=== PATIENT | male | born 1970 | race Hispanic/Latino ===

== ENCOUNTER 2017-12-02 21:39 | Inpatient (IN) | payer OTHER ==
[2017-12-02] MEDS ORDERED: NACL 0.9% 1000 ML 1,000 ML IV ONE (22:49)
[2017-12-02] MEDS ORDERED: DILAUDID IV ONE (22:49)
[2017-12-02] MEDS ORDERED: ZOFRAN IV ONE (22:49)
[2017-12-02 23:00] LABS: Basophils % (Auto) 0.7 % (0.0-1.8); Eosinophils % (Auto) 0.4 % (0.0-4.3); Hematocrit 38.3 % (35.5-45.6); Lymphocytes # (Auto) 1.2 K/mm3 (1.2-5.4); Lymphocytes % (Auto) 33.3 % (13.4-35.0); Mean Corpuscular HGB Conc 34 % (32-34); Mean Corpuscular Hemoglobin 34 pg (28-32); Mean Corpuscular Volume 99 fl (84-94); Monocytes # (Auto) 0.3 K/mm3 (0.0-0.8); Monocytes % (Auto) 7.4 % (0.0-7.3); Platelet Count 117 K/mm3 (140-440); Red Blood Count 3.87 M/mm3 (3.65-5.03)
[2017-12-02 23:06] LABS: Magnesium 1.7 mg/dL (1.7-2.3)
[2017-12-02 23:11] LABS: Alanine Aminotransferase 49 units/L (7-56); Albumin 4.1 g/dL (3.9-5); BUN/Creatinine Ratio 14; Blood Urea Nitrogen 7 mg/dL (9-20); Calcium 8.2 mg/dL (8.4-10.2); Hemolysis Index 15
--- NOTE | 2017-12-02 23:14 | Emergency Department Report ---
ED Abdominal Pain HPI - General Chief Complaint: Abdominal Pain Stated Complaint: ABDOMINAL PAIN Time Seen by Provider: 12/02/17 22:35 Source: patient, EMS Mode of arrival: Stretcher Limitations: No Limitations - History of Present Illness Initial Comments: 47-year-old male with a past medical history diabetes and alcohol abuse presents to the hospital complaints of acute pancreatitis. Patient states that he quit alcohol but sided making again the last 3 days secondary to pain. Patient complains of severe epigastric pain radiating to the back that is constant without aggravating or alleviating factors. Patient had associated nausea vomiting that stopped approximately 3 days ago. Patient also told that he has gallbladder sludging and might need his gallbladder out. He was sent from [facility] after receiving lab work and CT suggestive of pancreatitis. Severity scale (0 -10): 4 - Related Data Allergies Allergy/AdvReac Type Severity Reaction Status Date / Time No Known Allergies Allergy Verified 12/03/17 00:27 ED Review of Systems ROS: Stated complaint: ABDOMINAL PAIN Other details as noted in HPI Comment: All other systems reviewed and negative Other: Constitutional: No fevers chills Eyes: No eye pain visual changes or discharge ENT: No ear pain or throat pain Neck: Denies pain Respiratory: Denies cough wheezing shortness of breath Cardiovascular: Denies chest pain, palpitations, syncope GI: As per HPI : Denies dysuria Musculoskeletal: Pain radiates to the back Skin: Denies rash, lesions, erythema Neurologic: Denies headache, numbness, weakness Psychiatric: Denies suicidal ideation, hallucinations ED Past Medical Hx - Past Medical History Hx Diabetes: Yes Additional medical history: pancreatitis - Social History Smoking Status: Current Every Day Smoker Substance Use Type: Alcohol ED Physical Exam - General Limitations: No Limitations - Other Other exam information: General: No limitations, patient is alert in no acute distress Head exam: Atraumatic, normocephalic Eyes exam: Normal appearance ENT: Moist mucous membrane, normal oropharynx Neck exam: Normal inspection, full range of motion Respiratory exam: Clear to auscultation bilateral, no wheezes, rales, crackles Cardiovascular: Normal rate and rhythm, normal heart sounds Abdomen: Soft, nondistended, and upper quadrant, epigastric tenderness. No rebound or guarding. Extremity: Full range of motion normal inspection no deformity Back: Normal Inspection, full range of motion, no tenderness Neurologic: Alert, oriented x3, cranial nerves intact, no motor or sensory deficit Psychiatric: normal affect, normal mood Skin: Warm, dry, intact ED Course Vital Signs 12/02/17 12/02/17 12/02/17 21:54 21:55 22:00 Temperature Pulse Rate 96 H 94 H 90 Respiratory 14 9 L 12 Rate Blood Pressure 149/93 Blood Pressure [Left] O2 Sat by Pulse 97 98 Oximetry 12/02/17 12/02/17 12/02/17 22:03 22:05 22:11 Temperature 98.4 F Pulse Rate 97 H 96 H 92 H Respiratory 20 12 13 Rate Blood Pressure 152/95 149/93 149/93 Blood Pressure 152/95 [Left] O2 Sat by Pulse 98 98 98 Oximetry 12/02/17 12/02/17 12/02/17 22:15 22:20 22:25 Temperature Pulse Rate 90 89 91 H Respiratory 13 13 10 L Rate Blood Pressure 149/93 137/86 137/86 Blood Pressure [Left] O2 Sat by Pulse 99 98 99 Oximetry 12/02/17 22:33 Temperature Pulse Rate Respiratory 20 Rate Blood Pressure Blood Pressure [Left] O2 Sat by Pulse 100 Oximetry - Consultations Consultation #1: 12/02/17 23:00 Case was discussed with [facility] physician Dr. Gandhi. They do not have beds so recommend admission here. Patient was sent to the ED with a copy of the CT imaging and report however, I am unable to open the CD on the computers in the ED. I received a verbal report of the CT showing pancreatitis and to alcohol intoxication labs. They faxed over results for review. ED Medical Decision Making - Lab Data Result diagrams: 12/02/17 22:36 12/02/17 22:36 - Medical Decision Making Acute pancreatitis Likely alcohol-induced Patient presented to the [facility] office with a alcohol level in the 300s Patient gives a history of gallbladder sludge no acute gallbladder findings on CT performed today at [facility]. CT consistent with acute interstitial pancreatitis and profound hepatic steatosis Patient will be admitted to the hospital for further treatment - Differential Diagnosis pancreatitis, gastritis, biliary colic, cholecystitis Critical Care Time: No Critical care attestation.: If time is entered above; I have spent that time in minutes in the direct care of this critically ill patient, excluding procedure time. ED Disposition Clinical Impression: Acute alcoholic pancreatitis, Diabetes, Thrombocytopenia Disposition: OP ADMIT IP TO THIS HOSP Is pt being admited?: Yes Condition: Stable Time of Disposition: 23:19 (Dr Massey/hosp)
--- NOTE | 2017-12-02 23:27 | History and Physical Report ---
History of Present Illness Date of examination: 12/02/17 Chief complaint: Epigastric pain History of present illness: 47 year old woman with past medical history significant for alcohol abuse, diabetes mellitus on insulin, pancreatitis was sent from [facility] for the complaints of epigastric pain that started a week ago. He went to [facility] and CT scan was done and diagnosed to have pancreatitis and sent to [facility] for admission because of they don't have bed. Patient is complaining sharp epigastric pain, 8 out of 10 in intensity, with radiation to the back, associated with nausea and vomiting, no aggravating factors, pain is getting better after he get pain medicine in the ED. Patient said he has been alcoholic and quit drinking 3 months ago when he developed pancreatitis. Patient started to drink 3 days after he has abdominal pain to ease the pain but it didn't help him much. Patient denied fever, chills. Lipase level was 175 at presentation. Imaging was done at the [facility] per report from ED doctor showed pancreatitis but didn't show any stone, or any necrotic tissue in the pancreas. REVIEW OF SYSTEMS: GENERAL: no weight change, no fatigue, no fever HEAD: no head ache EYES: no blurry vision, no acute visual loss EARS: no hearing loss, no discharge, no earache NOSE: no stuffiness, no sneezing, no discharge MOUTH, THROAT AND NECK: no bleeding gums, no sore throat, no swollen neck CARDIAC: no palpitations, no dyspnea on exertion, no orthopnea, no PND, no edema , no chest pain RESPIRATORY: no shortness of breath, no wheeze, no cough, no sputum, no hemoptysis, no asthma GI: As stated in the HPI. URINARY: no change in frequency, no urgency, no polyuria, no hematuria, no incontinence MUSCULOSKELETAL: no muscle weakness, no pain, no joint stiffness NEUROLOGIC: no loss of sensation/numbness, no tingling, no tremors, no weakness/ paralysis HEMATOLOGIC: no anemia, no easy bruising SKIN: no rashes ENDOCRINE: no heat/cold intolerance, no polyuria, no polydipsia, no thyroid problems, + diabetes PSYCHIATRIC: no anxiety, no depression, no suicidal ideations Past History Past Medical History: diabetes, other Past Surgical History: hernia repair, Other (pancreatitis cyst removal) Social history: alcohol abuse (vodka), full code. denies: prescription drug abuse, IV drug use Family history: no significant family history Medications and Allergies Allergies Allergy/AdvReac Type Severity Reaction Status Date / Time No Known Allergies Allergy Verified 12/03/17 00:27 Home Medications Medication Instructions Recorded Confirmed Last Taken Type No Known Home Medications [No 12/03/17 12/03/17 Unknown History Reported Home Medications] Active Meds: Active Medications Sodium Chloride (Nacl 0.9% 1000 Ml) 1,000 mls @ 999 mls/hr IV BOLUS ONE Stop: 12/02/17 23:49 Exam - Physical Exam Narrative exam: Not in cardiopulmonary distress. The patient appeared well nourished and normally developed. Vital signs as documented. Head exam is unremarkable. No scleral icterus . Neck is without jugular venous distension, thyromegaly, or carotid bruits. Lungs are clear to auscultation. Cardiac exam reveals regular rate and Rhythm. First and second heart sounds normal. No murmurs, rubs or gallops. Abdominal exam reveals epigastric and right upper quadrant tenderness. Extremities are nonedematous and both femoral and pedal pulses are normal. COMPOSITE MECHANIC: Alert and oriented 3. No focal weakness. - Constitutional Vitals: Temp Pulse Resp BP Pulse Ox 98.4 F 91 H 20 137/86 100 12/02/17 22:03 12/02/17 22:25 12/02/17 22:33 12/02/17 22:25 12/02/17 22:33 Results - Labs CBC & Chem 7: 12/02/17 22:36 12/02/17 22:36 Labs: Laboratory Last Values WBC 3.6 K/mm3 (4.5-11.0) L 12/02/17 22:36 RBC 3.87 M/mm3 (3.65-5.03) 12/02/17 22:36 Hgb 13.0 gm/dl (11.8-15.2) 12/02/17 22:36 Hct 38.3 % (35.5-45.6) 12/02/17 22:36 MCV 99 fl (84-94) H 12/02/17 22:36 MCH 34 pg (28-32) H 12/02/17 22:36 MCHC 34 % (32-34) 12/02/17 22:36 RDW 16.0 % (13.2-15.2) H 12/02/17 22:36 Plt Count 117 K/mm3 (140-440) L 12/02/17 22:36 Lymph % (Auto) 33.3 % (13.4-35.0) 12/02/17 22:36 [place] % (Auto) 7.4 % (0.0-7.3) H 12/02/17 22:36 Eos % (Auto) 0.4 % (0.0-4.3) 12/02/17 22:36 Baso % (Auto) 0.7 % (0.0-1.8) 12/02/17 22:36 Lymph # 1.2 K/mm3 (1.2-5.4) 12/02/17 22:36 [place] # 0.3 K/mm3 (0.0-0.8) 12/02/17 22:36 Eos # 0.0 K/mm3 (0.0-0.4) 12/02/17 22:36 Baso # 0.0 K/mm3 (0.0-0.1) 12/02/17 22:36 Seg Neutrophils % 58.2 % (40.0-70.0) 12/02/17 22:36 Seg Neutrophils # 2.1 K/mm3 (1.8-7.7) 12/02/17 22:36 Sodium 143 mmol/L (137-145) 12/02/17 22:36 Potassium 4.8 mmol/L (3.6-5.0) 12/02/17 22:36 Chloride 101.3 mmol/L (98-107) 12/02/17 22:36 Carbon Dioxide 23 mmol/L (22-30) 12/02/17 22:36 Anion Gap 24 mmol/L 12/02/17 22:36 BUN 7 mg/dL (9-20) L 12/02/17 22:36 Creatinine 0.5 mg/dL (0.8-1.5) L 12/02/17 22:36 Estimated GFR > 60 ml/min 12/02/17 22:36 BUN/Creatinine Ratio 14 % 12/02/17 22:36 Glucose 134 mg/dL (75-100) H 12/02/17 22:36 Calcium 8.2 mg/dL (8.4-10.2) L 12/02/17 22:36 Magnesium 1.70 mg/dL (1.7-2.3) 12/02/17 22:38 Total Bilirubin 0.30 mg/dL (0.1-1.2) 12/02/17 22:36 AST 54 units/L (5-40) H 12/02/17 22:36 ALT 49 units/L (7-56) 12/02/17 22:36 Alkaline Phosphatase 86 units/L (35-129) 12/02/17 22:36 Total Protein 6.1 g/dL (6.3-8.2) L 12/02/17 22:36 Albumin 4.1 g/dL (3.9-5) 12/02/17 22:36 Albumin/Globulin Ratio 2.1 % 12/02/17 22:36 Lipase 175 units/L (13-60) H 12/02/17 22:38 Assessment and Plan Assessment and plan: Alcoholic pancreatitis - Bowel rest, IV fluids, pain control, antiemetics - Right upper quadrant ultrasound Alcohol abuse - [facility] protocol - Consulted about cessation of alcohol Diabetes mellitus - Continue sliding scale insulin DVT prophylaxis - Heparin Disposition - Admit to medical floor. Advance Directives: Yes VTE prophylaxis?: Chemical Plan of care discussed with patient/family: Yes
[2017-12-02] MEDS ORDERED: DULCOLAX PR PRN (23:29)
[2017-12-02] MEDS ORDERED: MILK OF MAGNESIA PO PRN (23:29)
[2017-12-02] MEDS ORDERED: D50W (25GM) Syringe IV PRN (23:47)
[2017-12-03] MEDS: MORPHINE IV PRN ×5 (01:47→23:03)
[2017-12-03] MEDS: NACL 0.45% 1000 ML 1,000 ML IV SCH ×2 (03:49→20:38)
[2017-12-03 06:24] LABS: Basophils % (Auto) 0.7 % (0.0-1.8); Eosinophils % (Auto) 0.5 % (0.0-4.3); Hematocrit 34.6 % (35.5-45.6); Hemoglobin 11.8 gm/dl (11.8-15.2); Lymphocytes # (Auto) 1.1 K/mm3 (1.2-5.4); Lymphocytes % (Auto) 32.8 % (13.4-35.0); Mean Corpuscular HGB Conc 34 % (32-34); Mean Corpuscular Hemoglobin 34 pg (28-32); Mean Corpuscular Volume 101 fl (84-94); Monocytes # (Auto) 0.4 K/mm3 (0.0-0.8); Monocytes % (Auto) 10.3 % (0.0-7.3); Red Blood Count 3.44 M/mm3 (3.65-5.03); Red Cell Distribution Width 15.7 % (13.2-15.2)
[2017-12-03 06:34] LABS: Platelet Count 94 K/mm3 (140-440)
[2017-12-03 06:39] LABS: Alanine Aminotransferase 41 units/L (7-56); Albumin 3.6 g/dL (3.9-5); BUN/Creatinine Ratio 15; Blood Urea Nitrogen 6 mg/dL (9-20); Calcium 7.9 mg/dL (8.4-10.2); Hemolysis Index 46
[2017-12-03] MEDS: HEPARIN SUB-Q SCH ×3 (06:41→22:58)
[2017-12-03] MEDS: NOVOLOG SUB-Q SCH ×4 (08:13→22:59)
--- NOTE | 2017-12-03 08:30 | Ultrasound Report ---
Limited abdominal ultrasound: Pancreatitis. Liver imaging raises suspicion of mild hepatic enlargement with increased echogenicity. There is through transmission. No focal finding. There is mild echogenicity in the dependent gallbladder consistent with sludge. The gallbladder marie are not thickened. No pericholecystic fluid. The CBD diameter is 3.8 mm. The pancreatic head and body appear grossly normal. The tail is obscured. The right renal length is 12.1 cm and the kidney appears echogenically unremarkable. Impressions: 1. Limited visualization of the pancreas with no gross abnormality. 2. Suspicion of hepatic steatosis. 3. Gallbladder sludge.
--- NOTE | 2017-12-03 08:31 | Progress Note ---
Assessment and Plan Assessment and plan: Alcoholic pancreatitis - Bowel rest, IV fluids, pain control, antiemetics - Right upper quadrant ultrasound showed no gross abnormalities of the pancreas , suspicion of hepatic steatosis, and gallbladder sludge. - CT abdomen/pelvis - repeat lipase tomorrow - consult GI Alcohol abuse - [facility] protocol - Consulted about cessation of alcohol Diabetes mellitus - Continue sliding scale insulin DVT prophylaxis - Heparin Disposition - Discharge upon symptom improvement Advance Directives: Yes VTE prophylaxis?: Chemical Plan of care discussed with patient/family: Yes Subjective Date of service: 12/03/17 Principal diagnosis: Alcoholic pancreatitis, alcohol abuse, DM2 Interval history: Patient was seen and examined today. Reports epigastric pain. Denies shakes. Objective - Constitutional Vitals: Vital Signs - 12hr 12/02/17 12/02/17 12/02/17 21:54 21:55 22:00 Temperature Pulse Rate 96 H 94 H 90 Respiratory 14 9 L 12 Rate Blood Pressure 149/93 Blood Pressure [Left] O2 Sat by Pulse 97 98 Oximetry 12/02/17 12/02/17 12/02/17 22:03 22:05 22:11 Temperature 98.4 F Pulse Rate 97 H 96 H 92 H Respiratory 20 12 13 Rate Blood Pressure 152/95 149/93 149/93 Blood Pressure 152/95 [Left] O2 Sat by Pulse 98 98 98 Oximetry 12/02/17 12/02/17 12/02/17 22:15 22:20 22:25 Temperature Pulse Rate 90 89 91 H Respiratory 13 13 10 L Rate Blood Pressure 149/93 137/86 137/86 Blood Pressure [Left] O2 Sat by Pulse 99 98 99 Oximetry 12/02/17 12/02/17 12/02/17 22:26 22:30 22:33 Temperature Pulse Rate 88 94 H Respiratory 14 13 20 Rate Blood Pressure 137/86 Blood Pressure [Left] O2 Sat by Pulse 98 97 100 Oximetry 12/02/17 12/02/17 12/02/17 22:40 22:51 23:00 Temperature Pulse Rate 85 85 83 Respiratory 13 15 14 Rate Blood Pressure 133/89 133/89 143/90 Blood Pressure [Left] O2 Sat by Pulse 97 98 Oximetry 12/02/17 12/02/17 12/02/17 23:11 23:20 23:31 Temperature Pulse Rate 97 H 84 84 Respiratory 13 11 L 13 Rate Blood Pressure 143/90 154/93 143/90 Blood Pressure [Left] O2 Sat by Pulse 98 96 Oximetry 12/02/17 12/02/17 12/03/17 23:40 23:51 00:00 Temperature Pulse Rate 85 86 91 H Respiratory 14 11 L 11 L Rate Blood Pressure 152/94 152/94 159/101 Blood Pressure [Left] O2 Sat by Pulse 98 96 98 Oximetry 12/03/17 12/03/17 12/03/17 00:11 00:20 00:31 Temperature Pulse Rate 83 89 86 Respiratory 11 L 10 L 12 Rate Blood Pressure 159/101 167/104 167/104 Blood Pressure [Left] O2 Sat by Pulse 98 99 98 Oximetry 12/03/17 12/03/17 12/03/17 00:40 00:51 01:00 Temperature Pulse Rate 80 84 80 Respiratory 14 13 13 Rate Blood Pressure 156/95 156/95 147/91 Blood Pressure [Left] O2 Sat by Pulse 96 96 96 Oximetry 12/03/17 12/03/17 12/03/17 01:11 01:20 01:31 Temperature Pulse Rate 83 85 83 Respiratory 12 11 L 13 Rate Blood Pressure 147/91 141/93 141/93 Blood Pressure [Left] O2 Sat by Pulse 95 95 95 Oximetry 12/03/17 12/03/17 12/03/17 01:40 01:50 01:59 Temperature Pulse Rate 80 85 Respiratory 13 15 18 Rate Blood Pressure 147/92 147/92 Blood Pressure [Left] O2 Sat by Pulse 96 97 98 Oximetry 12/03/17 12/03/17 12/03/17 02:00 02:11 02:17 Temperature 98.4 F Pulse Rate 95 H Respiratory 20 20 Rate Blood Pressure 147/92 150/92 Blood Pressure [Left] O2 Sat by Pulse 96 Oximetry 12/03/17 12/03/17 06:39 07:09 Temperature Pulse Rate Respiratory 20 18 Rate Blood Pressure Blood Pressure [Left] O2 Sat by Pulse Oximetry General appearance: Present: no acute distress, well-nourished - Neck Neck: supple, normal ROM - Respiratory Respiratory effort: normal Respiratory: bilateral: CTA - Cardiovascular Rhythm: regular Heart Sounds: Present: S1 & S2. Absent: gallop, rub Extremities: pulses intact, No edema, normal color - Gastrointestinal General gastrointestinal: Present: tender Localized gastrointestinal: tender: RUQ, epigastric periumbilical - Integumentary Integumentary: clear, warm, dry - Musculoskeletal Musculoskeletal: 1, strength equal bilaterally - Neurologic Neurologic: moves all extremities - Labs CBC & Chem 7: 12/03/17 05:37 12/03/17 05:37 Labs: Abnormal lab results 12/02/17 12/02/17 12/02/17 Range/Units 22:36 22:36 22:38 WBC 3.6 L (4.5-11.0) K/mm3 RBC (3.65-5.03) M/mm3 Hct (35.5-45.6) % MCV 99 H (84-94) fl MCH 34 H (28-32) pg RDW 16.0 H (13.2-15.2) % Plt Count 117 L (140-440) K/mm3 [place] % (Auto) 7.4 H (0.0-7.3) % Lymph # (1.2-5.4) K/mm3 Carbon Dioxide (22-30) mmol/L BUN 7 L (9-20) mg/dL Creatinine 0.5 L (0.8-1.5) mg/dL Glucose 134 H (75-100) mg/dL Calcium 8.2 L (8.4-10.2) mg/dL AST 54 H (5-40) units/L Total Protein 6.1 L (6.3-8.2) g/dL Albumin (3.9-5) g/dL Lipase 175 H (13-60) units/L 12/03/17 12/03/17 Range/Units 05:37 05:37 WBC 3.5 L (4.5-11.0) K/mm3 RBC 3.44 L (3.65-5.03) M/mm3 Hct 34.6 L (35.5-45.6) % MCV 101 H (84-94) fl MCH 34 H (28-32) pg RDW 15.7 H (13.2-15.2) % Plt Count 94 L (140-440) K/mm3 [place] % (Auto) 10.3 H (0.0-7.3) % Lymph # 1.1 L (1.2-5.4) K/mm3 Carbon Dioxide 21 L (22-30) mmol/L BUN 6 L (9-20) mg/dL Creatinine 0.4 L (0.8-1.5) mg/dL Glucose 104 H (75-100) mg/dL Calcium 7.9 L (8.4-10.2) mg/dL AST 47 H (5-40) units/L Total Protein 5.9 L (6.3-8.2) g/dL Albumin 3.6 L (3.9-5) g/dL Lipase (13-60) units/L
[2017-12-03] MEDS: PEPCID IV SCH ×2 (10:01→22:30)
[2017-12-03] MEDS ORDERED: ATIVAN IV PRN (11:44)
[2017-12-03] MEDS: HABITROL TD SCH (13:44)
[2017-12-03] MEDS: ATIVAN IV PRN ×2 (13:45→20:38)
--- NOTE | 2017-12-03 20:11 | Cat Scan Report ---
FINAL REPORT PROCEDURE: CT ABDOMEN PELVIS W CON TECHNIQUE: Computerized axial tomography of the abdomen and pelvis was performed after the IV injection of iodinated nonionic contrast. HISTORY: Pancreatitis concern for pseudocyst. Abdominal pain. COMPARISON: No prior studies are available for comparison. FINDINGS: Lower Lung morales: Small amount of linear atelectasis seen in the lung bases. No effusions are identified. Upper Abdomen: Liver density is diffusely decreased consistent with diffuse fatty infiltration of the liver. There is a small area of sparing of fatty infiltration of the liver left lobe anteriorly. Gallbladder showed no focal abnormality. The adrenal glands and the spleen are unremarkable. No pancreatic masses are identified. I do not see evidence of a pseudocyst. There is however diffuse inflammatory change in the peripancreatic adipose tissue extending inferiorly along the anterior surface of Gerota's fascia bilaterally consistent with acute pancreatitis. The marie of the 3rd portion of the duodenum are thickened suggesting duodenitis or reactive change secondary to the pancreatitis. Kidneys, Ureters and Urinary bladder: Subcentimeter renal cortical cysts appear to be present bilaterally. The kidneys, the ureters and urinary bladder otherwise are unremarkable. Urinary bladder is moderately distended. Retroperitoneum: Minimal atherosclerotic changes are seen in the abdominal aorta. No aneurysm is visualized. Nonspecific subcentimeter lymph nodes are seen in the retroperitoneum. No pathologically enlarged lymph nodes are identified. Bowel: There is mild wall thickening and mucosal prominence in several loops of small bowel in the left upper quadrant, proximal small bowel suggesting a nonspecific enteritis. There is also mild wall thickening seen in the terminal ileum and in the cecum suggesting nonspecific enteritis and colitis in these areas as well. Normal-appearing appendix is seen in the right lower quadrant directed posteriorly. Other: No acute bony abnormalities are seen. IMPRESSION: Findings consistent with acute pancreatitis. No evidence of pseudocyst. Mild wall thickening and mucosal prominence seen in loops of small bowel in the left upper quadrant also in the terminal ileum and in the cecum suggesting nonspecific enteritis and colitis. Marie of the 3rd portion the duodenum are also thickened suggesting duodenitis. Fatty infiltration of the liver.
[2017-12-04] MEDS: MORPHINE IV PRN ×5 (02:39→21:04)
[2017-12-04 06:30] LABS: Hematocrit 43.5 % (35.5-45.6); Hemoglobin 14.6 gm/dl (11.8-15.2); Mean Corpuscular HGB Conc 34 % (32-34); Mean Corpuscular Hemoglobin 34 pg (28-32); Mean Corpuscular Volume 102 fl (84-94); Platelet Count 119 K/mm3 (140-440); Red Blood Count 4.27 M/mm3 (3.65-5.03); Red Cell Distribution Width 16.1 % (13.2-15.2)
[2017-12-04] MEDS: ZOFRAN IV PRN ×2 (06:31→18:00)
[2017-12-04] MEDS: HEPARIN SUB-Q SCH ×2 (06:31→13:47)
[2017-12-04 06:47] LABS: Alanine Aminotransferase 42 units/L (7-56); Albumin 4.2 g/dL (3.9-5); BUN/Creatinine Ratio 8; Blood Urea Nitrogen 5 mg/dL (9-20); Calcium 8.7 mg/dL (8.4-10.2); Hemolysis Index 13
[2017-12-04 07:49] LABS: Total Cells Counted 100
[2017-12-04 07:50] LABS: Band Neutrophils # (Manual) 0.1 K/mm3; Basophils % (Manual) 0 % (0.0-1.8); Eosinophils % (Manual) 0 % (0.0-4.3); Platelet Estimate Consistent w Auto; RBC Morphology Normal
--- NOTE | 2017-12-04 08:21 | Progress Note ---
Assessment and Plan Assessment and plan: Alcoholic pancreatitis - Bowel rest, IV fluids, pain control, antiemetics - Right upper quadrant ultrasound showed no gross abnormalities of the pancreas , suspicion of hepatic steatosis, and gallbladder sludge. - CT abdomen/pelvis confirmed pancreatitis with fatty liver disease - repeat lipase tomorrow - consulted GI following the patient Alcohol abuse - [facility] protocol - Consulted about cessation of alcohol Diabetes mellitus - Continue sliding scale insulin DVT prophylaxis - Heparin - Metabolic acidosis with hyponatrmia Commence pt on D5/1/2 NS and increase SSI at moderate dose Disposition - Discharge upon symptom improvement Advance Directives: Yes VTE prophylaxis?: Chemical Plan of care discussed with patient/family: Yes Subjective Date of service: 12/04/17 Principal diagnosis: Alcoholic pancreatitis, alcohol abuse, DM2 Interval history: Patient was seen and examined today. Reports epigastric pain. improving Denies shakes. Objective - Exam Narrative Exam: Constitutional: Well-nourished well-developed. In no distress Head: Normocephalic atraumatic Eyes: Pupils are equal round and reactive to light Nose: No enlarged turbinates, no septal deviation. Mouth: Moist mucous membranes. Neck: Supple no thyromegaly. No bruit. No JVD Heart: Regular rate and rhythm, S1-S2 abnormal. No rubs murmurs or gallop Lungs: Clear to auscultation bilaterally no rales or rhonchi Abdomen: Soft, nontender. Bowel sound are present. Extremities: No edema no cyanosis and no clubbing. Neuro: Alert oriented Oriented x3. No focal sensory or motor deficit. Skin: No rashes no hyperemic spots Psychiatry: Euthymic. Calm. - Constitutional Vitals: Vital Signs - 12hr 12/03/17 12/03/17 12/04/17 20:29 23:03 02:39 Temperature Pulse Rate Pulse Rate [ 76 Apical] Respiratory 20 20 Rate Blood Pressure O2 Sat by Pulse Oximetry 12/04/17 12/04/17 06:31 07:18 Temperature 98.0 F Pulse Rate 98 H Pulse Rate [ Apical] Respiratory 20 19 Rate Blood Pressure 147/96 O2 Sat by Pulse 99 Oximetry - Labs CBC & Chem 7: 12/04/17 05:23 12/04/17 05:23 Labs: Abnormal lab results 12/03/17 12/03/17 12/03/17 Range/Units 11:14 16:36 17:10 MCV (84-94) fl MCH (28-32) pg RDW (13.2-15.2) % Plt Count (140-440) K/mm3 Seg Neuts % (Manual) (40.0-70.0) % Lymphocytes % (Manual) (13.4-35.0) % Monocytes % (Manual) (0.0-7.3) % Lymphocytes # (Manual) (1.2-5.4) K/mm3 Sodium (137-145) mmol/L Chloride (98-107) mmol/L Carbon Dioxide (22-30) mmol/L BUN (9-20) mg/dL Creatinine (0.8-1.5) mg/dL Glucose (75-100) mg/dL POC Glucose 125 H 174 H (70-105) Lipase 399 H (13-60) units/L 18 12/04/17 12/04/17 Range/Units 21:52 05:23 05:23 MCV 102 H (84-94) fl MCH 34 H (28-32) pg RDW 16.1 H (13.2-15.2) % Plt Count 119 L (140-440) K/mm3 Seg Neuts % (Manual) 73.0 H (40.0-70.0) % Lymphocytes % (Manual) 13.0 L (13.4-35.0) % Monocytes % (Manual) 12.0 H (0.0-7.3) % Lymphocytes # (Manual) 0.7 L (1.2-5.4) K/mm3 Sodium 129 L D (137-145) mmol/L Chloride 88.6 L (98-107) mmol/L Carbon Dioxide 11 L D (22-30) mmol/L BUN 5 L (9-20) mg/dL Creatinine 0.6 L (0.8-1.5) mg/dL Glucose 251 H (75-100) mg/dL POC Glucose 245 H (70-105) Lipase (13-60) units/L 12/04/17 Range/Units 05:56 MCV (84-94) fl MCH (28-32) pg RDW (13.2-15.2) % Plt Count (140-440) K/mm3 Seg Neuts % (Manual) (40.0-70.0) % Lymphocytes % (Manual) (13.4-35.0) % Monocytes % (Manual) (0.0-7.3) % Lymphocytes # (Manual) (1.2-5.4) K/mm3 Sodium (137-145) mmol/L Chloride (98-107) mmol/L Carbon Dioxide (22-30) mmol/L BUN (9-20) mg/dL Creatinine (0.8-1.5) mg/dL Glucose (75-100) mg/dL POC Glucose 239 H (70-105) Lipase (13-60) units/L
[2017-12-04] MEDS: NOVOLOG SUB-Q SCH ×4 (09:08→17:59)
[2017-12-04] MEDS: HABITROL TD SCH (09:20)
[2017-12-04] MEDS: PEPCID IV SCH (09:21)
[2017-12-04] MEDS: ATIVAN IV PRN ×3 (09:22→23:10)
[2017-12-04] MEDS: NACL 0.45% 1000 ML 1,000 ML IV SCH (12:38)
--- NOTE | 2017-12-04 13:15 | Consultation ---
History of Present Illness - Reason for Consult Consult date: 12/04/17 pancreatitis - History of Present Illness Mr. Myles is a 47-year-old man who works in the [employer] business. He was referred here by [facility] for pancreatitis. Patient has a history of alcohol abuse and alcoholic pancreatitis. He claims to have quit drinking 3 months ago. He states he was well until November 26 when he developed epigastric pain and back pain similar to his pancreatitis pain. This was associated with nausea and vomiting. He started to drink and states that as long as he was drinking vodka, the patient's pain was at day. Once he quit drinking however the pain came back, he was seen at [place], had CAT scan and labs showing pancreatitis, and was referred here for further evaluation and management. The details of his history are not completely clear, but he has been hospitalized at [facility], as well as at [facility] for this problem. He states that he was drinking about one or 2 pints of vodka a week. Patient states that he also has erosive esophagitis and underwent an upper endoscopy in June 2017 which documented this. He states he has been vomiting frequently for about one year. He has lost 70 pounds over this timeframe. He does smoke. Of note, he did have some sludge noted in his gallbladder on ultrasound. He denies known liver disease. Patient denies chest pain or shortness of breath or GI bleeding. He also has diabetes and is supposed to be on an insulin pump but he has not been compliant. Patient's estranged , and his mother are in the room with pt and collaborating and elaborating upon the history derived. Past History Past Medical History: diabetes, other (alcoholic pancreatitis) Past Surgical History: hernia repair, Other (pancreatitis cyst removal) Social history: alcohol abuse (vodka), full code. denies: prescription drug abuse, IV drug use Family history: no significant family history Medications and Allergies Allergies Allergy/AdvReac Type Severity Reaction Status Date / Time No Known Allergies Allergy Verified 12/03/17 00:27 Home Medications Medication Instructions Recorded Confirmed Last Taken Type No Known Home Medications [No 12/03/17 12/03/17 Unknown History Reported Home Medications] Active Meds: Active Medications Bisacodyl (Dulcolax) 10 mg [place] QDAY PRN PRN Reason: Constipation unrelieved by MOM Dextrose (D50w (25gm) Syringe) 50 ml IV PRN PRN PRN Reason: Hypoglycemia Famotidine (Pepcid) 20 mg IV BID [facility] Last Admin: 12/04/17 09:21 Dose: 20 mg Heparin Sodium (Porcine) (Heparin) 5,000 unit SUB-Q Q8HR [facility] Last Admin: 12/04/17 06:31 Dose: 5,000 unit Sodium Chloride (Nacl 0.45% 1000 Ml) 1,000 mls @ 100 mls/hr IV DIRECT [facility] Last Admin: 12/04/17 12:38 Dose: 100 mls/hr Insulin Aspart (Novolog) 0 units SUB-Q ACHS [facility] PRN Reason: Protocol Last Admin: 12/04/17 12:38 Dose: 2 units Lorazepam (Ativan) 2 mg IV Q1H PRN PRN Reason: CIWA-Ar 8-15 Last Admin: 12/04/17 09:22 Dose: 2 mg Lorazepam (Ativan) 4 mg IV Q1H PRN PRN Reason: PAIGE-Antoine 16-25 Magnesium Hydroxide (Milk Of Magnesia) 30 ml PO Q4H PRN PRN Reason: Constipation Morphine Sulfate (Morphine) 2 mg IV Q4H PRN PRN Reason: Pain, Moderate (4-6) Last Admin: 12/04/17 10:25 Dose: 2 mg Nicotine (Habitrol) 21 mg TD QDAY [facility] Last Admin: 12/04/17 09:20 Dose: 21 mg Ondansetron HCl (Zofran) 4 mg IV Q8H PRN PRN Reason: N/V unrelieved by [place] Last Admin: 12/04/17 06:31 Dose: 4 mg Review of Systems All systems: negative (as noted in HPI) Exam - Constitutional Vitals: Temp Pulse Resp BP Pulse Ox 98.2 F 100 H 16 141/95 99 12/04/17 08:58 12/04/17 11:19 12/04/17 11:19 12/04/17 11:19 12/04/17 08:58 General appearance: Present: no acute distress - EENT Eyes: Present: PERRL, EOM intact ENT: hearing intact - Neck Neck: Present: supple - Respiratory Respiratory effort: normal Respiratory: bilateral: CTA - Cardiovascular Rhythm: regular Heart Sounds: Present: S1 & S2 - Extremities Extremities: No edema - Abdominal General gastrointestinal: Present: soft, tender (Mild diffuse, epifanio in upper abdomen), normal bowel sounds Results - Labs CBC & Chem 7: 12/04/17 05:23 12/04/17 05:23 Labs: Abnormal lab results 12/03/17 12/03/17 12/03/17 Range/Units 16:36 17:10 21:52 MCV (84-94) fl MCH (28-32) pg RDW (13.2-15.2) % Plt Count (140-440) K/mm3 Seg Neuts % (Manual) (40.0-70.0) % Lymphocytes % (Manual) (13.4-35.0) % Monocytes % (Manual) (0.0-7.3) % Lymphocytes # (Manual) (1.2-5.4) K/mm3 Sodium (137-145) mmol/L Chloride (98-107) mmol/L Carbon Dioxide (22-30) mmol/L BUN (9-20) mg/dL Creatinine (0.8-1.5) mg/dL Glucose (75-100) mg/dL POC Glucose 174 H 245 H (70-105) Lipase 399 H (13-60) units/L 12/04/17 12/04/17 12/04/17 Range/Units 05:23 05:23 05:56 MCV 102 H (84-94) fl MCH 34 H (28-32) pg RDW 16.1 H (13.2-15.2) % Plt Count 119 L (140-440) K/mm3 Seg Neuts % (Manual) 73.0 H (40.0-70.0) % Lymphocytes % (Manual) 13.0 L (13.4-35.0) % Monocytes % (Manual) 12.0 H (0.0-7.3) % Lymphocytes # (Manual) 0.7 L (1.2-5.4) K/mm3 Sodium 129 L D (137-145) mmol/L Chloride 88.6 L (98-107) mmol/L Carbon Dioxide 11 L D (22-30) mmol/L BUN 5 L (9-20) mg/dL Creatinine 0.6 L (0.8-1.5) mg/dL Glucose 251 H (75-100) mg/dL POC Glucose 239 H (70-105) Lipase (13-60) units/L 12/04/17 Range/Units 11:34 MCV (84-94) fl MCH (28-32) pg RDW (13.2-15.2) % Plt Count (140-440) K/mm3 Seg Neuts % (Manual) (40.0-70.0) % Lymphocytes % (Manual) (13.4-35.0) % Monocytes % (Manual) (0.0-7.3) % Lymphocytes # (Manual) (1.2-5.4) K/mm3 Sodium (137-145) mmol/L Chloride (98-107) mmol/L Carbon Dioxide (22-30) mmol/L BUN (9-20) mg/dL Creatinine (0.8-1.5) mg/dL Glucose (75-100) mg/dL POC Glucose 232 H (70-105) Lipase (13-60) units/L - Imaging and Cardiology CT scan - abdomen: report reviewed, other (Pancreatitis with interstitial edema , no masses seen. Fatty liver.) Assessment and Plan 1. Pancreatitis - Due to EtOH. The patient is more than likely still actively drinking though he denies it. Regardless, at this point, I would treat him conservatively with pain control and IV hydration. I would advance his diet as tolerated and monitor the lipase. I will initiate clear liquids today. Other etiologies need to be considered including malignancy, especially given the weight loss. Biliary etiology is certainly possible given the gallbladder sludge, but less likely with normal liver enzymes. Biliary sludge also develops in the setting of poor by mouth intake over a prolonged period of time , which the patient has had. We will check a CA 19-9 level. As an outpatient, we may need to consider MRI of the pancreas. Patient is well aware of the need to quit drinking. 2. Esophagitis - will start PPI. No plans for endoscopic evaluation present. 3. Low platelets this could be due to alcohol suppression of the bone marrow, or due to portal hypertension. Would monitor for now.
[2017-12-04] MEDS ORDERED: PROTONIX IV SCH (16:00)
[2017-12-04] MEDS ORDERED: D5NS 1,000 ML IV SCH (19:00)
[2017-12-04] MEDS ORDERED: SODIUM BICARBONATE PO SCH (22:00)
[2017-12-04] MEDS ORDERED: LEVEMIR SUB-Q SCH (22:00)
[2017-12-05] MEDS: HEPARIN SUB-Q SCH ×2 (00:04→06:05)
[2017-12-05] MEDS: NOVOLOG SUB-Q SCH (00:20)
[2017-12-05] MEDS: MORPHINE IV PRN (02:07)
[2017-12-05] MEDS: ATIVAN IV PRN (05:09)
[2017-12-05 06:09] LABS: Basophils % (Auto) 0.2 % (0.0-1.8); Eosinophils % (Auto) 0.4 % (0.0-4.3); Lymphocytes # (Auto) 0.7 K/mm3 (1.2-5.4); Mean Corpuscular HGB Conc 35 % (32-34); Mean Corpuscular Hemoglobin 34 pg (28-32); Mean Corpuscular Volume 98 fl (84-94); Monocytes # (Auto) 0.7 K/mm3 (0.0-0.8); Monocytes % (Auto) 15.1 % (0.0-7.3); Platelet Count 128 K/mm3 (140-440); Red Cell Distribution Width 15.5 % (13.2-15.2)
[2017-12-05 06:30] LABS: Alanine Aminotransferase 32 units/L (7-56); Albumin 4.3 g/dL (3.9-5); BUN/Creatinine Ratio 8; Blood Urea Nitrogen 4 mg/dL (9-20); Calcium 8.9 mg/dL (8.4-10.2); Hemolysis Index 21
[2017-12-05 08:23] VITALS: BP 135/94
== END 2017-12-05 09:01 | disposition left against medical advice (07) | DRG 439 ==
LOC: ED 21:39 → 3A 23:29
PROVIDERS: ADMIT Internal Medicine; ATTEND Internal Medicine
DX: K85.20 Alcohol induced acute pancreatitis without necrosis or infection (principal); E87.1 Hypo-osmolality and hyponatremia; E87.2 Acidosis; E11.9 Type 2 diabetes mellitus without complications; F17.200 Nicotine dependence, unspecified, uncomplicated; D69.6 Thrombocytopenia, unspecified; K20.9 Esophagitis, unspecified; F10.10 Alcohol abuse, uncomplicated; Z53.21 Procedure and treatment not carried out due to patient leaving prior to being seen by health care provider; Z71.41 Alcohol abuse counseling and surveillance of alcoholic
CPT/HCPCS: 36415; 74177; 76705; 80053; 82962; 83690; 83735; 85007; 85025; 86301; 96374; 96375; 99406; C9113; J1170; J1644; J1815; J1818; J2060; J2270; J2405; J7030; J7042; Q9967

== ENCOUNTER 2017-12-08 11:43 | Inpatient (IN) | payer OTHER ==
[2017-12-08] MEDS ORDERED: NACL 0.9% 1000 ML 1,000 ML IV ONE ×3 (13:06→16:34)
[2017-12-08] MEDS ORDERED: SODIUM BICARBONATE IV ONE ×3 (13:07→16:40)
[2017-12-08 13:08] LABS: Hematocrit 46.4 % (35.5-45.6); Hemoglobin 15.3 gm/dl (11.8-15.2); Mean Corpuscular HGB Conc 33 % (32-34); Mean Corpuscular Hemoglobin 34 pg (28-32); Mean Corpuscular Volume 104 fl (84-94); Platelet Count 191 K/mm3 (140-440); Red Blood Count 4.48 M/mm3 (3.65-5.03); Red Cell Distribution Width 15.6 % (13.2-15.2)
[2017-12-08 13:23] LABS: BUN/Creatinine Ratio 29; Blood Urea Nitrogen 29 mg/dL (9-20); Calcium 9.3 mg/dL (8.4-10.2); Hemolysis Index 25
[2017-12-08] MEDS ORDERED: D50W (25GM) Syringe IV PRN ×3 (13:26→16:34)
[2017-12-08 13:32] LABS: Albumin 4.3 g/dL (3.9-5); Bilirubin,Direct 0.5 mg/dL (0-0.2)
[2017-12-08 13:54] LABS: Anisocytosis 1+; Basophils % (Manual) 0 % (0.0-1.8); Eosinophils % (Manual) 0 % (0.0-4.3); Total Cells Counted 100
[2017-12-08] MEDS ORDERED: NovoLIN R 100 UNITS in NACL 0.9% 99 ML IV SCH ×2 (14:00→17:00)
--- NOTE | 2017-12-08 14:35 | XRay Report ---
AP CHEST: HISTORY: Shortness of breath AP view of the chest demonstrates a normal mediastinal and cardiac contour with clear lungs and normal bony and soft tissue structures. IMPRESSION: Unremarkable AP chest.
--- NOTE | 2017-12-08 14:37 | Cat Scan Report ---
CT ABDOMEN PELVIS WITHOUT CONTRAST: HISTORY: Pancreatitis. COMPARISON: 12/03/17. TECHNIQUE: Helical CT in 1.25mm intervals without IV contrast. Sagittal and coronal reconstructions. FINDINGS: Lung bases: Patchy groundglass infiltration is noted no peripheral lower lung zones. The clinical significance of this is unclear. I suppose pneumonia could be considered. It is a new finding since the previous exam. Liver: Moderate to severe diffuse fatty change within the liver is again noted. No focal liver mass. Biliary system: Unremarkable. Pancreas: Inflammatory changes and fluid surrounding the pancreas have essentially resolved since the exam 5 days ago. No obvious pancreatic mass or ductal dilatation. Spleen: Normal. Kidneys/ureters/bladder: Normal. Adrenal glands: Normal. Aorta: Normal. Intestines: Within normal limits. Appendix: Normal. Ascites: None. Adenopathy: None. Musculoskeletal: Normal. IMPRESSION: Significant improvement in the acute pancreatitis findings since 12/03/17. Fatty change in the liver, stable. There are new ill-defined ground glass densities in the lower lung zones peripherally as described above. Correlate for pulmonary symptoms.
[2017-12-08 14:51] LABS: BUN/Creatinine Ratio 29; Blood Urea Nitrogen 29 mg/dL (9-20); Calcium 9.2 mg/dL (8.4-10.2); Hemolysis Index 13; Magnesium 2.3 mg/dL (1.7-2.3)
--- NOTE | 2017-12-08 15:17 | Emergency Department Report ---
ED General Adult HPI - General Chief complaint: Hyperglycemia Stated complaint: DKA Time Seen by Provider: 12/08/17 12:51 Source: patient, family, EMS Mode of arrival: Stretcher Limitations: No Limitations - History of Present Illness Initial comments: recent history of pancreatitis, history of DKA presents with kussmaul respirations has been non compliant with his meds recently discharged from the hospital for same, no fever but here w/ rapid breathing, polyuria polydypsnea, noncomp;iance, hx of etoh and still drinking as of a week ago. no cp +abd pain to back, occ n/v no dysuria, n oneck pain no fever , slightly low temp on arrival at 94 oral, improved w/ blankets and warmer. -: days(s), unknown Severity scale (0 -10): 0 Treatments Prior to Arrival: none - Related Data Home Medications Medication Instructions Recorded Confirmed Last Taken Gemfibrozil [Lopid] 600 mg PO QDAY 12/08/17 12/08/17 Unknown Insulin Glargine,Hum.rec.anlog 40 - 45 units SUB-Q DAILY 12/08/17 12/08/17 Unknown [Lantus Solostar] Insulin Lispro [Humalog 100 10 - 15 units SUB-Q TID 12/08/17 12/08/17 12/08/17 UNITS/ML Kwikpen] Levothyroxine [Synthroid] 50 mcg PO QDAY 12/08/17 12/08/17 Unknown Lisinopril [Zestril] 10 mg PO QDAY 12/08/17 12/08/17 Unknown Omeprazole Magnesium [Prilosec Otc] 20 mg PO BID 12/08/17 12/08/17 Unknown Pravastatin Sodium [Pravastatin] 10 mg PO DAILY 12/08/17 12/08/17 Unknown Trazodone HCl 50 mg PO HS PRN 12/08/17 12/08/17 Unknown Allergies Allergy/AdvReac Type Severity Reaction Status Date / Time No Known Allergies Allergy Verified 12/03/17 00:27 ED Review of Systems ROS: Stated complaint: DKA Other details as noted in HPI Comment: All other systems reviewed and negative Constitutional: malaise, weakness. denies: diaphoresis ENT: denies: ear pain, throat pain, dental pain, hearing loss, epistaxis Respiratory: shortness of breath, SOB at rest. denies: cough, orthopnea, SOB with exertion, stridor, wheezing Cardiovascular: denies: chest pain, palpitations, dyspnea on exertion, orthopnea , edema, syncope, paroxysmal nocturnal dyspnea Gastrointestinal: abdominal pain. denies: constipation, hematemesis, melena, hematochezia Genitourinary: frequency. denies: dysuria, hematuria, discharge Neurological: confusion, other (patient was seeing black cats earlier however arrives awake alert oriented 3). denies: headache, weakness, numbness, paresthesias, abnormal gait, vertigo Psychiatric: visual hallucinations. denies: homicidal thoughts, suicidal thoughts Hematological/Lymphatic: denies: easy bleeding, easy bruising ED Past Medical Hx - Past Medical History Hx Congestive Heart Failure: No Hx Diabetes: Yes Hx Asthma: No Hx COPD: No Additional medical history: pancreatitis - Surgical History Past Surgical History?: No - Social History Smoking Status: Never Smoker Substance Use Type: Alcohol - Medications Home Medications: Home Medications Medication Instructions Recorded Confirmed Last Taken Type Gemfibrozil [Lopid] 600 mg PO QDAY 12/08/17 12/08/17 Unknown History Insulin Glargine,Hum.rec.anlog 40 - 45 units SUB-Q DAILY 12/08/17 12/08/17 Unknown History [Lantus Solostar] Insulin Lispro [Humalog 100 10 - 15 units SUB-Q TID 12/08/17 12/08/17 12/08/17 History UNITS/ML Kwikpen] Levothyroxine [Synthroid] 50 mcg PO QDAY 12/08/17 12/08/17 Unknown History Lisinopril [Zestril] 10 mg PO QDAY 12/08/17 12/08/17 Unknown History Omeprazole Magnesium [Prilosec Otc] 20 mg PO BID 12/08/17 12/08/17 Unknown History Pravastatin Sodium [Pravastatin] 10 mg PO DAILY 12/08/17 12/08/17 Unknown History Trazodone HCl 50 mg PO HS PRN 12/08/17 12/08/17 Unknown History ED Physical Exam - General Limitations: No Limitations General appearance: alert (no airway compromise), anxious, other (dehydrated with rapid respirations and is chronically ill appearing poor hygiene) - Head Head exam: Present: atraumatic, normocephalic - Eye Eye exam: Present: PERRL, EOMI - ENT ENT exam: Present: normal exam, mucous membranes dry - Neck Neck exam: Present: normal inspection. Absent: tenderness, meningismus - Respiratory Respiratory exam: Present: normal lung sounds bilaterally, respiratory distress , rhonchi, other (tacypnea). Absent: wheezes, stridor, chest wall tenderness - Cardiovascular Cardiovascular Exam: Present: tachycardia, normal heart sounds. Absent: rubs, gallop - GI/Abdominal GI/Abdominal exam: Present: soft, tenderness. Absent: guarding, rebound, mass, pulsatile mass - Extremities Exam Extremities exam: Absent: joint swelling, calf tenderness - Back Exam Back exam: Present: normal inspection - Neurological Exam Neurological exam: Present: alert, oriented X3, CN II-XII intact. Absent: motor sensory deficit - Psychiatric Psychiatric exam: Present: agitated. Absent: homicidal ideation, suicidal ideation - Skin Skin exam: Absent: urticaria, vesicles, petechiae, pallor, abrasion, ecchymosis ED Course Vital Signs 12/08/17 12/08/17 12/08/17 12:20 12:30 12:31 Temperature 94.9 F L Pulse Rate 98 H Respiratory 22 Rate Blood Pressure 138/84 130/78 O2 Sat by Pulse 100 99 100 Oximetry 12/08/17 12/08/17 12/08/17 12:46 13:00 13:15 Temperature Pulse Rate Respiratory Rate Blood Pressure 138/84 143/92 143/92 O2 Sat by Pulse 98 100 97 Oximetry 12/08/17 12/08/17 12/08/17 13:27 13:30 13:46 Temperature Pulse Rate 109 H Respiratory 26 H Rate Blood Pressure 130/88 130/88 O2 Sat by Pulse 98 89 Oximetry 12/08/17 12/08/17 12/08/17 14:06 14:16 14:30 Temperature Pulse Rate 109 H 106 H 101 H Respiratory 38 H 25 H 29 H Rate Blood Pressure 130/88 133/90 140/97 O2 Sat by Pulse 81 L Oximetry - Reevaluation(s) Reevaluation #1: 12/08/17 15:54 Patient was placed on typing checker immediately IV fluids were given after his studies blood gas x-ray and CT were obtained. This was given IV fluids and started on insulin drip awaiting further evaluation laboratory studies ED Medical Decision Making - Lab Data Result diagrams: 12/08/17 12:44 12/08/17 14:19 - EKG Data EKG shows normal: sinus rhythm Rate: tachycardia - EKG Data When compared to previous EKG there are: other (no acute ischemic change) - Radiology Data Radiology results: report reviewed - Medical Decision Making Patient laboratory studies was CONSISTENT with DKA. Patient did have a vbg of 6.98 pH. Chest x-ray was read as no acute process. CT abdomen and pelvis did show some hazy opacities at the lung bases bilateral. Blood cultures were ordered antibiotics were instituted. Patient did have a bear hugger with blankets with improvement of his core temperature 97. Patient did have 3 L bolus fluids he was started on DKA protocol with insulin. CT of the abdomen and pelvis was showing improvement of a acute pancreatitis that he has had previously. He has apparently a history of alcohol abuse he was given Ativan for possible early withdrawal symptoms. no DTs or Etoh withdrawal at this time but macll need observation for this, he had been noncompliacne w/ meds adn regimen, ? if still etoh, likley pneumonia and evidence dka, case d/w dr townsend hospitalist who will eval for admit in ed. swetha sepulveda at [place] approves admit at this facility as they have no beds. Critical Care Time: Yes Critical care time in (mins) excluding proc time.: 45 Critical care attestation.: If time is entered above; I have spent that time in minutes in the direct care of this critically ill patient, excluding procedure time. 45 ED Disposition Clinical Impression: DKA (diabetic ketoacidoses) Disposition: DC-09 OP ADMIT IP TO THIS HOSP Is pt being admited?: Yes Condition: Stable Instructions: Diabetic Ketoacidosis (ED) Referrals: JENNIFER CARBAJAL [Other] - 3-5 Days Time of Disposition: 16:01
[2017-12-08] MEDS ORDERED: ROCEPHIN/NS 1 GM/50 ML 1 GM/50 ML BAG IV ONE (15:19)
[2017-12-08] MEDS ORDERED: DILAUDID IV ONE (15:20)
[2017-12-08] MEDS ORDERED: ZOFRAN IV ONE (15:21)
[2017-12-08] MEDS ORDERED: ATIVAN IV ONE (15:45)
[2017-12-08] MEDS ORDERED: ZITHROMAX 500 MG in NACL 0.9% 250ML 250 ML IV ONE (16:00)
[2017-12-08] MEDS ORDERED: cefTRIAXone 1 GM in NACL 0.9% 20 ML IV ONE (16:00)
[2017-12-08 16:05] LABS: BUN/Creatinine Ratio 31; Blood Urea Nitrogen 28 mg/dL (9-20); Calcium 9.4 mg/dL (8.4-10.2); Hemolysis Index 27
--- NOTE | 2017-12-08 16:18 | History and Physical Report ---
History of Present Illness Chief complaint: Im sick History of present illness: 47 YO Male with ETOH Dependence, ETOH Pancreatitis, DM, Medication Noncompliance , Depression presents to ED for evaluation. Pt states that he feels sick. Pt is unable to provide detailed history, but patient and mother are at bedside and provide history. As per family, patient has become increasingly confused, and weak over the past 2 days. No reports of fever, chills, CP, Palpitations, NVD, Syncope, Trauma, Seizures, or recent ill contacts. Pt seen and evaluated in ED and found to have DKA, with Severe metabolic acidosis, as well and metabolic encephalopathy. Pt also found to have sepsis. Pt admitted to ICU and initiated on DKA protocol, as well as sepsis protocol. Past History Past Medical History: diabetes, other (ETOH Dependence, ETOH Pancreatitis) Past Surgical History: No surgical history, Other (reviewed) Social history: , lives with family, alcohol abuse. denies: prescription drug abuse, IV drug use Family history: diabetes, hypertension Medications and Allergies Allergies Allergy/AdvReac Type Severity Reaction Status Date / Time No Known Allergies Allergy Verified 12/03/17 00:27 Home Medications Medication Instructions Recorded Confirmed Last Taken Type Gemfibrozil [Lopid] 600 mg PO QDAY 12/08/17 12/08/17 Unknown History Insulin Glargine,Hum.rec.anlog 40 - 45 units SUB-Q DAILY 12/08/17 12/08/17 Unknown History [Lantus Solostar] Insulin Lispro [Humalog 100 10 - 15 units SUB-Q TID 12/08/17 12/08/17 12/08/17 History UNITS/ML Kwikpen] Levothyroxine [Synthroid] 50 mcg PO QDAY 12/08/17 12/08/17 Unknown History Lisinopril [Zestril] 10 mg PO QDAY 12/08/17 12/08/17 Unknown History Omeprazole Magnesium [Prilosec Otc] 20 mg PO BID 12/08/17 12/08/17 Unknown History Pravastatin Sodium [Pravastatin] 10 mg PO DAILY 12/08/17 12/08/17 Unknown History Trazodone HCl 50 mg PO HS PRN 12/08/17 12/08/17 Unknown History Active Meds: Active Medications Dextrose (D50w (25gm) Syringe) 0 ml IV PRN PRN PRN Reason: Hypoglycemia Insulin Human Regular 100 (units/ Sodium Chloride) 100 mls @ 1 mls/hr IV TITR ZANDER; 1 UNITS/HR PRN Reason: Protocol Last Admin: 12/08/17 15:09 Dose: 7 units/hr, 7 mls/hr Azithromycin 500 mg/ Sodium (Chloride) 250 mls @ 250 mls/hr IV ONCE.ED ONE Stop: 12/08/17 16:59 Review of Systems ROS unobtainable: due to mental status Exam - Constitutional Vitals: Temp Pulse Resp BP Pulse Ox 94.9 F L 101 H 29 H 140/97 81 L 12/08/17 12:31 12/08/17 14:30 12/08/17 14:30 12/08/17 14:30 12/08/17 14:06 General appearance: Present: mild distress - EENT Eyes: Present: PERRL ENT: hearing intact, clear oral mucosa - Neck Neck: Present: supple, normal ROM - Respiratory Respiratory: bilateral: diminished, rhonchi - Cardiovascular Rhythm: other (tachycardia) - Extremities Extremities: pulses symmetrical, No edema Peripheral Pulses: abnormal (capillary refill greater than 3.6 seconds) - Abdominal General gastrointestinal: Present: soft, non-tender, non-distended, normal bowel sounds Male genitourinary: Present: normal - Integumentary Integumentary: Present: clear, dry, clammy, decreased turgor - Musculoskeletal Musculoskeletal: generalized weakness - Psychiatric Psychiatric: no intact judgment & insight, no memory intact - Neurologic Neurologic: no focal deficits, moves all extremities, no gait normal Results - Labs CBC & Chem 7: 12/08/17 12:44 12/08/17 15:28 Labs: Abnormal lab results 12/08/17 12/08/17 12/08/17 Range/Units 12:24 12:44 12:44 WBC 14.9 H (4.5-11.0) K/mm3 Hgb 15.3 H (11.8-15.2) gm/dl Hct 46.4 H (35.5-45.6) % MCV 104 H (84-94) fl MCH 34 H (28-32) pg RDW 15.6 H (13.2-15.2) % Seg Neuts % (Manual) 76.0 H (40.0-70.0) % Lymphocytes % (Manual) 4.0 L (13.4-35.0) % Monocytes % (Manual) 13.0 H (0.0-7.3) % Seg Neutrophils # Man 11.3 H (1.8-7.7) K/mm3 Lymphocytes # (Manual) 0.6 L (1.2-5.4) K/mm3 Monocytes # (Manual) 1.9 H (0.0-0.8) K/mm3 VBG pH (7.320-7.420) Sodium 130 L (137-145) mmol/L Potassium 5.4 H (3.6-5.0) mmol/L Chloride 89.4 L (98-107) mmol/L Carbon Dioxide 6 L* D (22-30) mmol/L BUN 29 H (9-20) mg/dL Glucose 484 H (75-100) mg/dL POC Glucose (70-105) Direct Bilirubin (0-0.2) mg/dL AST (5-40) units/L Lipase 152 H (13-60) units/L 12/08/17 12/08/17 12/08/17 Range/Units 12:44 12:44 12:54 WBC (4.5-11.0) K/mm3 Hgb (11.8-15.2) gm/dl Hct (35.5-45.6) % MCV (84-94) fl MCH (28-32) pg RDW (13.2-15.2) % Seg Neuts % (Manual) (40.0-70.0) % Lymphocytes % (Manual) (13.4-35.0) % Monocytes % (Manual) (0.0-7.3) % Seg Neutrophils # Man (1.8-7.7) K/mm3 Lymphocytes # (Manual) (1.2-5.4) K/mm3 Monocytes # (Manual) (0.0-0.8) K/mm3 VBG pH 6.977 L* (7.320-7.420) Sodium (137-145) mmol/L Potassium (3.6-5.0) mmol/L Chloride (98-107) mmol/L Carbon Dioxide (22-30) mmol/L BUN (9-20) mg/dL Glucose (75-100) mg/dL POC Glucose 392 H (70-105) Direct Bilirubin 0.5 H (0-0.2) mg/dL AST 41 H (5-40) units/L Lipase (13-60) units/L 12/08/17 12/08/17 Range/Units 14:19 15:28 WBC (4.5-11.0) K/mm3 Hgb (11.8-15.2) gm/dl Hct (35.5-45.6) % MCV (84-94) fl MCH (28-32) pg RDW (13.2-15.2) % Seg Neuts % (Manual) (40.0-70.0) % Lymphocytes % (Manual) (13.4-35.0) % Monocytes % (Manual) (0.0-7.3) % Seg Neutrophils # Man (1.8-7.7) K/mm3 Lymphocytes # (Manual) (1.2-5.4) K/mm3 Monocytes # (Manual) (0.0-0.8) K/mm3 VBG pH (7.320-7.420) Sodium 133 L 133 L (137-145) mmol/L Potassium (3.6-5.0) mmol/L Chloride 90.1 L 90.8 L (98-107) mmol/L Carbon Dioxide 7 L* (22-30) mmol/L BUN 29 H 28 H (9-20) mg/dL Glucose 409 H 378 H (75-100) mg/dL POC Glucose (70-105) Direct Bilirubin (0-0.2) mg/dL AST (5-40) units/L Lipase (13-60) units/L Assessment and Plan - Patient Problems (1) Sepsis Current Visit: Yes Status: Acute Qualifiers: Sepsis type: sepsis due to unspecified organism Qualified Code(s): A41.9 - Sepsis, unspecified organism Plan to address problem: Sepsis protocol: IV antibiotic therapy for unknown organisms, IVF resuscitation , blood cultures, urinalysis, chest x ray, monitor uop q shift, serial lactic acid level. The high probability of a clinically significant, sudden or life threatening deterioration of the [cardiac, respiratory, endocrine, renal] system(s) required my full and direct attention, intervention and personal management. The aggregate critical care time was [65] minutes. This time is in addition to time spent performing reported procedures but includes the following: [x] Data Review and interpretation [x] Patient assessment and monitoring of vital signs [x] Documentation [x] Medication orders and management (2) DKA (diabetic ketoacidoses) Current Visit: Yes Status: Acute Plan to address problem: DKA Protocol: Insulin drip, serial bmp, IVF resuscitation, monitor anion gap, monitor uop q shift, (3) Metabolic acidosis Current Visit: Yes Status: Acute Plan to address problem: serial lactic acid, treat sepsis and dka, IVF resuscitation (4) Encephalopathy Current Visit: Yes Status: Acute Plan to address problem: Treat DKA, IVF resuscitation, supportive care. (5) Alcohol dependence Current Visit: Yes Status: Acute Qualifiers: Substance use status: in withdrawal Complication of substance-induced condition: with perceptual disturbance Qualified Code(s): F10.232 - Alcohol dependence with withdrawal with perceptual disturbance Plan to address problem: CIWA protocol, Banana bag, oral thiamine, folic acid and multivitamin when awake and alert only. (6) DVT prophylaxis Current Visit: Yes Status: Acute
[2017-12-08] MEDS ORDERED: DULCOLAX PR PRN (16:34)
[2017-12-08] MEDS ORDERED: ALUM-MAG HYDROX-SIMETH 200-200-20MG/5ML PO PRN (16:34)
[2017-12-08] MEDS ORDERED: VANCOMYCIN VIAL IV ONE (16:34)
[2017-12-08] MEDS ORDERED: NACL 0.9% 1000 ML IV ONE (16:34)
[2017-12-08] MEDS ORDERED: MILK OF MAGNESIA PO PRN (16:34)
[2017-12-08] MEDS ORDERED: VANCOMYCIN PHARMACY TO DOSE IV SCH (17:00)
[2017-12-08] MEDS ORDERED: VITAMIN B-1 100 MG, FOLVITE 1 MG, INFUVITE 10 ML in NACL 0.9% 1000 ML 1,000 ML IV ONE (17:05)
[2017-12-08] MEDS ORDERED: VANCOMYCIN 1,500 MG in NACL 0.9% 500 ML 500 ML IV ONE (17:15)
[2017-12-08 17:44] LABS: Bilirubin,Urine NEG (Negative); Blood,Urine MOD (Negative); Color,Urine Yellow (Yellow); Nitrite,Urine NEG (Negative)
[2017-12-08 17:52] LABS: BUN/Creatinine Ratio 31; Blood Urea Nitrogen 25 mg/dL (9-20); Calcium 8.8 mg/dL (8.4-10.2); Hemolysis Index 15
[2017-12-08 18:04] LABS: Amphetamine Screen,Urine PRESUMPTIVE NEGATIVE; Benzodiazepines Screen,Urine PRESUMPTIVE NEGATIVE; Cannabinoid Screen,Urine PRESUMPTIVE NEGATIVE; Cocaine Screen,Urine PRESUMPTIVE NEGATIVE; Methadone Screen,Urine PRESUMPTIVE NEGATIVE; Opiate Screen,Urine PRESUMPTIVE NEGATIVE
[2017-12-08 19:03] LABS: BUN/Creatinine Ratio 26; Blood Urea Nitrogen 23 mg/dL (9-20); Calcium 9.1 mg/dL (8.4-10.2); Hemolysis Index 12
[2017-12-08] MEDS ORDERED: D5W 1,000 ML IV ONE (19:07)
[2017-12-08] MEDS: ZOSYN/NS 4.5GM/100ML 4.5 GM/100 ML VIAL IV SCH (19:56)
[2017-12-08] MEDS: VITAMIN B-1 PO SCH (20:10)
[2017-12-08] MEDS: FOLVITE PO SCH (20:10)
[2017-12-08] MEDS: THERAGRAN-M Tab PO SCH (20:19)
[2017-12-08 20:20] LABS: BUN/Creatinine Ratio 26; Blood Urea Nitrogen 21 mg/dL (9-20); Calcium 9.1 mg/dL (8.4-10.2); Hemolysis Index 6
[2017-12-08 22:04] LABS: BUN/Creatinine Ratio 25; Blood Urea Nitrogen 20 mg/dL (9-20); Calcium 8.8 mg/dL (8.4-10.2); Hemolysis Index 21
[2017-12-08 23:57] LABS: BUN/Creatinine Ratio 24; Blood Urea Nitrogen 19 mg/dL (9-20); Calcium 8.9 mg/dL (8.4-10.2); Hemolysis Index 9
[2017-12-09 01:53] LABS: BUN/Creatinine Ratio 26; Blood Urea Nitrogen 18 mg/dL (9-20); Calcium 8.9 mg/dL (8.4-10.2); Hemolysis Index 9
[2017-12-09] MEDS: ZOSYN/NS 4.5GM/100ML 4.5 GM/100 ML VIAL IV SCH ×3 (02:54→18:38)
[2017-12-09] MEDS ORDERED: D5NS 1,000 ML IV SCH (05:00)
[2017-12-09] MEDS ORDERED: D5/0.45NS 1,000 ML IV ONE (05:51)
[2017-12-09 06:08] LABS: BUN/Creatinine Ratio 24; Blood Urea Nitrogen 17 mg/dL (9-20); Calcium 9.4 mg/dL (8.4-10.2); Hemolysis Index 26
[2017-12-09] MEDS: D5/0.45NS 1,000 ML IV SCH ×2 (06:16→15:56)
[2017-12-09] MEDS ORDERED: VANCOMYCIN/NS 1 GM/250 ML 1 GM/250 ML BAG IV SCH (08:00)
[2017-12-09] MEDS: ATIVAN IV PRN ×8 (08:43→21:25)
[2017-12-09] MEDS ORDERED: ATIVAN IV PRN (09:16)
[2017-12-09 10:25] LABS: BUN/Creatinine Ratio 21; Blood Urea Nitrogen 15 mg/dL (9-20); Calcium 9.3 mg/dL (8.4-10.2); Hemolysis Index 28
[2017-12-09] MEDS: VANCOMYCIN/0.45 NS 1 GM/250 ML 1 GM/250 ML BAG IV SCH ×2 (10:37→20:23)
[2017-12-09] MEDS: FOLVITE PO SCH (13:09)
[2017-12-09] MEDS: THERAGRAN-M Tab PO SCH (13:09)
[2017-12-09] MEDS: VITAMIN B-1 PO SCH (13:09)
--- NOTE | 2017-12-09 19:08 | Progress Note ---
Assessment and Plan Assessment and plan: DKA - Patient is being managed according to DKA protocol, still has an high anion gap - Pending admission to ICU Metabolic encephalopathy versus psychiatric illness - Treat the underlying condition - Mental health consult placed - Patient is on 1013, need psychiatrist evaluation Metabolic acidosis - Patient is on IV fluids History of pancreatitis Alcohol abuse - Patient is on CIWA protocol DVT prophylaxis Disposition - Admit to ICU History Interval history: Patient was seen and evaluated this morning, patient's speech doesn't make sense. Patient is confused. Hospitalist Physical - Physical exam Narrative exam: Not in cardiopulmonary distress. The patient appeared well nourished and normally developed. Vital signs as documented. Head exam is unremarkable. No scleral icterus . Neck is without jugular venous distension, thyromegaly, or carotid bruits. Lungs are clear to auscultation. Cardiac exam reveals regular rate and Rhythm. First and second heart sounds normal. No murmurs, rubs or gallops. Abdominal exam reveals normal bowel sounds, no masses, no organomegaly and no aortic enlargement. Extremities are nonedematous and both femoral and pedal pulses are normal. 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 - Constitutional Vitals: Temp Pulse Resp BP Pulse Ox 94.9 F L 108 H 21 132/86 100 12/08/17 12:31 12/09/17 18:00 12/09/17 18:30 12/09/17 18:30 12/09/17 18:30 General appearance: Present: mild distress Results - Labs CBC & Chem 7: 12/08/17 12:44 12/09/17 09:44 Labs: Laboratory Last Values WBC 14.9 K/mm3 (4.5-11.0) H 12/08/17 12:44 RBC 4.48 M/mm3 (3.65-5.03) 12/08/17 12:44 Hgb 15.3 gm/dl (11.8-15.2) H 12/08/17 12:44 Hct 46.4 % (35.5-45.6) H 12/08/17 12:44 MCV 104 fl (84-94) H 12/08/17 12:44 MCH 34 pg (28-32) H 12/08/17 12:44 MCHC 33 % (32-34) 12/08/17 12:44 RDW 15.6 % (13.2-15.2) H 12/08/17 12:44 Plt Count 191 K/mm3 (140-440) 12/08/17 12:44 Add Manual Diff Complete 12/08/17 12:44 Total Counted 100 12/08/17 12:44 Seg Neuts % (Manual) 76.0 % (40.0-70.0) H 12/08/17 12:44 Band Neutrophils % 7.0 % 12/08/17 12:44 Lymphocytes % (Manual) 4.0 % (13.4-35.0) L 12/08/17 12:44 Reactive Lymphs % (Man) 0 % 12/08/17 12:44 Monocytes % (Manual) 13.0 % (0.0-7.3) H 12/08/17 12:44 Eosinophils % (Manual) 0 % (0.0-4.3) 12/08/17 12:44 Basophils % (Manual) 0 % (0.0-1.8) 12/08/17 12:44 Metamyelocytes % 0 % 12/08/17 12:44 Myelocytes % 0 % 12/08/17 12:44 Promyelocytes % 0 % 12/08/17 12:44 Blast Cells % 0 % 12/08/17 12:44 Nucleated RBC % Not Reportable 12/08/17 12:44 Seg Neutrophils # Man 11.3 K/mm3 (1.8-7.7) H 12/08/17 12:44 Band Neutrophils # 1.0 K/mm3 12/08/17 12:44 Lymphocytes # (Manual) 0.6 K/mm3 (1.2-5.4) L 12/08/17 12:44 Abs React Lymphs (Man) 0.0 K/mm3 12/08/17 12:44 Monocytes # (Manual) 1.9 K/mm3 (0.0-0.8) H 12/08/17 12:44 Eosinophils # (Manual) 0.0 K/mm3 (0.0-0.4) 12/08/17 12:44 Basophils # (Manual) 0.0 K/mm3 (0.0-0.1) 12/08/17 12:44 Metamyelocytes # 0.0 K/mm3 12/08/17 12:44 Myelocytes # 0.0 K/mm3 12/08/17 12:44 Promyelocytes # 0.0 K/mm3 12/08/17 12:44 Blast Cells # 0.0 K/mm3 12/08/17 12:44 WBC Morphology Not Reportable 12/08/17 12:44 Hypersegmented Neuts Not Reportable 12/08/17 12:44 Hyposegmented Neuts Not Reportable 12/08/17 12:44 Hypogranular Neuts Not Reportable 12/08/17 12:44 Smudge Cells Not Reportable 12/08/17 12:44 Toxic Granulation Not Reportable 12/08/17 12:44 Toxic Vacuolation Not Reportable 12/08/17 12:44 Dohle Bodies Not Reportable 12/08/17 12:44 Pelger-Huet Anomaly Not Reportable 12/08/17 12:44 Josephine Rods Not Reportable 12/08/17 12:44 Platelet Estimate Not Reportable 12/08/17 12:44 Clumped Platelets Not Reportable 12/08/17 12:44 Plt Clumps, EDTA Not Reportable 12/08/17 12:44 Large Platelets Not Reportable 12/08/17 12:44 Giant Platelets Not Reportable 12/08/17 12:44 Platelet Satelliting Not Reportable 12/08/17 12:44 Plt Morphology Comment Not Reportable 12/08/17 12:44 RBC Morphology Not Reportable 12/08/17 12:44 Dimorphic RBCs Not Reportable 12/08/17 12:44 Polychromasia Not Reportable 12/08/17 12:44 Hypochromasia Not Reportable 12/08/17 12:44 Poikilocytosis Not Reportable 12/08/17 12:44 Anisocytosis 1+ 12/08/17 12:44 Microcytosis Not Reportable 12/08/17 12:44 Macrocytosis Not Reportable 12/08/17 12:44 Spherocytes Not Reportable 12/08/17 12:44 Pappenheimer Bodies Not Reportable 12/08/17 12:44 Sickle Cells Not Reportable 12/08/17 12:44 Target Cells Not Reportable 12/08/17 12:44 Tear Drop Cells Not Reportable 12/08/17 12:44 Ovalocytes Not Reportable 12/08/17 12:44 Helmet Cells Not Reportable 12/08/17 12:44 Spencer-Hop[place] Bodies Not Reportable 12/08/17 12:44 Donora Rings Not Reportable 12/08/17 12:44 Alhaji Cells Not Reportable 12/08/17 12:44 Bite Cells Not Reportable 12/08/17 12:44 Crenated Cell Not Reportable 12/08/17 12:44 Elliptocytes Not Reportable 12/08/17 12:44 Acanthocytes (Spur) Not Reportable 12/08/17 12:44 Rouleaux Not Reportable 12/08/17 12:44 Hemoglobin C Crystals Not Reportable 12/08/17 12:44 Schistocytes Not Reportable 12/08/17 12:44 Malaria parasites Not Reportable 12/08/17 12:44 Sonido Bodies Not Reportable 12/08/17 12:44 Hem Pathologist Commnt No 12/08/17 12:44 VBG pH 6.977 (7.320-7.420) L* 12/08/17 12:44 Sodium 139 mmol/L (137-145) 12/09/17 09:44 Potassium 3.6 mmol/L (3.6-5.0) 12/09/17 09:44 Chloride 100.1 mmol/L (98-107) 12/09/17 09:44 Carbon Dioxide 18 mmol/L (22-30) L 12/09/17 09:44 Anion Gap 25 mmol/L 12/09/17 09:44 BUN 15 mg/dL (9-20) 12/09/17 09:44 Creatinine 0.7 mg/dL (0.8-1.5) L 12/09/17 09:44 Estimated GFR > 60 ml/min 12/09/17 09:44 BUN/Creatinine Ratio 21 % 12/09/17 09:44 Glucose 100 mg/dL (75-100) 12/09/17 09:44 POC Glucose 158 (70-105) H 12/09/17 18:26 Hemoglobin A1c 8.2 % (4-6) H 12/08/17 16:34 Ketones Quantitative Moderate (Negative) 12/08/17 12:44 Lactic Acid 1.50 mmol/L (0.7-2.0) 12/09/17 01:22 Calcium 9.3 mg/dL (8.4-10.2) 12/09/17 09:44 Phosphorus 1.20 mg/dL (2.5-4.5) L 12/08/17 16:37 Magnesium 2.00 mg/dL (1.7-2.3) 12/08/17 16:37 Total Bilirubin 1.10 mg/dL (0.1-1.2) 12/08/17 12:44 Direct Bilirubin 0.5 mg/dL (0-0.2) H 12/08/17 12:44 Indirect Bilirubin 0.6 mg/dL 12/08/17 12:44 AST 41 units/L (5-40) H 12/08/17 12:44 ALT 55 units/L (7-56) 12/08/17 12:44 Alkaline Phosphatase 121 units/L (35-129) 12/08/17 12:44 Troponin T < 0.010 ng/mL (0.00-0.029) 12/08/17 12:44 Total Protein 7.9 g/dL (6.3-8.2) 12/08/17 12:44 Albumin 4.3 g/dL (3.9-5) 12/08/17 12:44 Albumin/Globulin Ratio 1.2 % 12/08/17 12:44 Lipase 152 units/L (13-60) H 12/08/17 12:24 Urine Color Yellow (Yellow) 12/08/17 17:21 Urine Turbidity Clear (Clear) 12/08/17 17:21 Urine pH 5.0 (5.0-7.0) 12/08/17 17:21 Ur Specific [place] 1.026 (1.003-1.030) 12/08/17 17:21 Urine Protein 100 mg/dl mg/dL (Negative) 12/08/17 17:21 Urine Glucose (UA) >=500 mg/dL (Negative) 12/08/17 17:21 Urine Ketones 80 mg/dL (Negative) 12/08/17 17:21 Urine Blood Mod (Negative) 12/08/17 17:21 Urine Nitrite Neg (Negative) 12/08/17 17:21 Urine Bilirubin Neg (Negative) 12/08/17 17:21 Urine Urobilinogen 4.0 mg/dL (<2.0) 12/08/17 17:21 Ur Leukocyte Esterase Neg (Negative) 12/08/17 17:21 Urine WBC (Auto) 1.0 /HPF (0.0-6.0) 12/08/17 17:21 Urine RBC (Auto) 1.0 /HPF (0.0-6.0) 12/08/17 17:21 U Epithel Cells (Auto) < 1.0 /HPF (0-13.0) 12/08/17 17:21 Urine Opiates Screen Presumptive negative 12/08/17 17:21 Urine Methadone Screen Presumptive negative 12/08/17 17:21 Ur Barbiturates Screen Presumptive negative 12/08/17 17:21 Ur Phencyclidine Scrn Presumptive negative 12/08/17 17:21 Ur Amphetamines Screen Presumptive negative 12/08/17 17:21 U Benzodiazepines Scrn Presumptive negative 12/08/17 17:21 Urine Cocaine Screen Presumptive negative 12/08/17 17:21 U Marijuana (THC) Screen Presumptive negative 12/08/17 17:21 Drugs of Abuse Note Disclamer 12/08/17 17:21 Plasma/Serum Alcohol < 0.01 % (0-0.07) 12/08/17 15:45
[2017-12-09] MEDS ORDERED: NACL 0.9% 1000 ML 1,000 ML IV SCH (20:00)
[2017-12-09 21:37] LABS: BUN/Creatinine Ratio 17; Blood Urea Nitrogen 10 mg/dL (9-20); Calcium 9.2 mg/dL (8.4-10.2); Hemolysis Index 37
[2017-12-10] MEDS: ATIVAN IV PRN ×4 (00:51→11:32)
[2017-12-10] MEDS: D5/0.45NS 1,000 ML IV SCH ×2 (00:52→08:42)
[2017-12-10] MEDS: ZOSYN/NS 4.5GM/100ML 4.5 GM/100 ML VIAL IV SCH ×3 (02:24→19:24)
[2017-12-10 03:59] LABS: Basophils % (Auto) 0.2 % (0.0-1.8); Eosinophils % (Auto) 0.4 % (0.0-4.3); Hematocrit 35.8 % (35.5-45.6); Hemoglobin 12.7 gm/dl (11.8-15.2); Lymphocytes # (Auto) 0.9 K/mm3 (1.2-5.4); Lymphocytes % (Auto) 15.5 % (13.4-35.0); Mean Corpuscular HGB Conc 35 % (32-34); Mean Corpuscular Hemoglobin 34 pg (28-32); Mean Corpuscular Volume 96 fl (84-94); Monocytes # (Auto) 0.8 K/mm3 (0.0-0.8); Monocytes % (Auto) 14.4 % (0.0-7.3); Platelet Count 143 K/mm3 (140-440); Red Blood Count 3.74 M/mm3 (3.65-5.03); Red Cell Distribution Width 15.2 % (13.2-15.2)
[2017-12-10 04:20] LABS: BUN/Creatinine Ratio 16; Blood Urea Nitrogen 8 mg/dL (9-20); Calcium 8.6 mg/dL (8.4-10.2); Hemolysis Index 8
[2017-12-10] MEDS: VANCOMYCIN/0.45 NS 1 GM/250 ML 1 GM/250 ML BAG IV SCH (09:05)
[2017-12-10] MEDS: THERAGRAN-M Tab PO SCH (09:05)
[2017-12-10] MEDS: FOLVITE PO SCH (09:05)
[2017-12-10] MEDS: VITAMIN B-1 PO SCH (09:05)
--- NOTE | 2017-12-10 13:45 | Consultation ---
History of Present Illness - Reason for Consult Consult date: 12/10/17 Reason for consult: Mental Health Evaluation Requesting physician: MARY SANTIAGO - Chief Complaint Chief complaint: "Patient sedated" - History of Present Psychiatric Illness 47 y.o. white male witha recent history of pancreatitis, ETOH, and DKA presents with kussmaul respiration. Today the patient is sedated. Per collateral information from his Beata Myles who was at the bedside, she stated that her been drinking alcohol (etoh) for 20 plus years. She stated that over the last 2 years her 's alcohol intake increased. She stated that her has a hx of depression and took antidepressant in the past. She stated that her was inpatient at a [facility] facility for abusing Mucinex. No gestures of SI/HI's. Medications and Allergies Allergies Allergy/AdvReac Type Severity Reaction Status Date / Time No Known Allergies Allergy Verified 12/03/17 00:27 Home Medications Medication Instructions Recorded Confirmed Last Taken Type Gemfibrozil [Lopid] 600 mg PO QDAY 12/08/17 12/08/17 Unknown History Insulin Glargine,Hum.rec.anlog 40 - 45 units SUB-Q DAILY 12/08/17 12/08/17 Unknown History [Lantus Solostar] Insulin Lispro [Humalog 100 10 - 15 units SUB-Q TID 12/08/17 12/08/17 12/08/17 History UNITS/ML Kwikpen] Levothyroxine [Synthroid] 50 mcg PO QDAY 12/08/17 12/08/17 Unknown History Lisinopril [Zestril] 10 mg PO QDAY 12/08/17 12/08/17 Unknown History Omeprazole Magnesium [Prilosec Otc] 20 mg PO BID 12/08/17 12/08/17 Unknown History Pravastatin Sodium [Pravastatin] 10 mg PO DAILY 12/08/17 12/08/17 Unknown History Trazodone HCl 50 mg PO HS PRN 12/08/17 12/08/17 Unknown History PARoxetine [Paxil] 10 mg PO QDAY #30 tablet 12/12/17 Unknown Rx hydrOXYzine PAMOATE [Vistaril] 25 mg PO Q6H PRN #60 capsule 12/12/17 Unknown Rx Active Meds: Active Medications Al Hydrox/Mg Hydrox/Simethicone (Alum-Mag Hydrox-Simeth [id number]/5ml) 30 ml PO Q4H PRN PRN Reason: Indigestion Bisacodyl (Dulcolax) 10 mg [place] QDAY PRN PRN Reason: constipation unrelieved by MOM Dextrose (D50w (25gm) Syringe) 0 ml IV PRN PRN PRN Reason: Hypoglycemia Dextrose (D50w (25gm) Syringe) 0 ml IV ONCE PRN PRN Reason: Hypoglycemia Folic Acid (Folvite) 1 mg PO DAILY ZANDER Last Admin: 12/10/17 09:05 Dose: 1 mg Insulin Human Regular 100 (units/ Sodium Chloride) 100 mls @ 1 mls/hr IV TITR ZANDER; 1 UNITS/HR PRN Reason: Protocol Last Titration: 12/10/17 06:00 Dose: 3 units/hr, 3 mls/hr Piperacillin Sod/Tazobactam Sod (Zosyn/Ns 4.5gm/100ml) 4.5 gm in 100 mls @ 200 mls/hr IV Q8H ZANDER PRN Reason: Protocol Last Admin: 12/10/17 02:24 Dose: 200 mls/hr Vancomycin HCl (Vancomycin/0.45 Ns 1 Gm/250 Ml) 1 gm in 250 mls @ 167.007 mls/ hr IV Q12H ZANDER Last Admin: 12/10/17 09:05 Dose: 167.007 mls/hr Dextrose/Sodium Chloride (D5/0.45ns) 1,000 mls @ 125 mls/hr IV DIRECT ZANDER Last Admin: 12/10/17 08:42 Dose: 125 mls/hr Sodium Chloride (Nacl 0.9% 1000 Ml) 1,000 mls @ 999 mls/hr IV DIRECT ZANDER Lorazepam (Ativan) 2 mg IV Q1HR PRN PRN Reason: CIWA-Ar 8-15 Last Admin: 12/10/17 11:32 Dose: 2 mg Lorazepam (Ativan) 4 mg IV Q15MIN PRN PRN Reason: CIWA-Ar >25 Lorazepam (Ativan) 4 mg IV Q1HR PRN PRN Reason: CIWA-Ar 16-25 Last Admin: 12/09/17 21:25 Dose: 4 mg Magnesium Hydroxide (Milk Of Magnesia) 30 ml PO Q4H PRN PRN Reason: Constipation Multivitamins/Minerals (Theragran-M Tab) 1 each PO QDAY ZANDER Last Admin: 12/10/17 09:05 Dose: 1 each Thiamine HCl (Vitamin B-1) 100 mg PO QDAY ZANDER Last Admin: 12/10/17 09:05 Dose: 100 mg Vancomycin HCl (Vancomycin Pharmacy To Dose) 1 each IV PKCONSULT ZANDER PRN Reason: Protocol Past psychiatric history - Past Medical History Past Medical History: diabetes, other (Pancreatitis) Past Surgical History: No surgical history - past Psychiatric treatment and history Psych: Depression psychiatric treatment history: Per his spouse the patient has seen a psychiatrist for depression in the past. The spouse denies a fam psy hx. - Social History Social history: lives with family Mental Status Exam - Vital signs Last Vital Signs Temp 98.0 F 12/10/17 04:00 Pulse 96 H 12/10/17 11:41 Resp 22 12/10/17 11:41 BP 145/94 12/10/17 11:41 Pulse Ox 83 L 12/10/17 07:00 - Exam Narrative exam: MSE cannot be completed because of patient's condition. Results Result Diagrams: 12/12/17 05:02 12/12/17 05:02 Abnormal lab results 12/09/17 12/09/17 12/09/17 Range/Units 14:52 16:03 17:20 MCV (84-94) fl MCH (28-32) pg MCHC (32-34) % [place] % (Auto) (0.0-7.3) % Lymph # (1.2-5.4) K/mm3 Sodium (137-145) mmol/L Potassium (3.6-5.0) mmol/L Chloride (98-107) mmol/L Carbon Dioxide (22-30) mmol/L BUN (9-20) mg/dL Creatinine (0.8-1.5) mg/dL Glucose (75-100) mg/dL POC Glucose 151 H 134 H 123 H (70-105) 12/09/17 12/09/17 12/09/17 Range/Units 18:26 19:31 20:38 MCV (84-94) fl MCH (28-32) pg MCHC (32-34) % [place] % (Auto) (0.0-7.3) % Lymph # (1.2-5.4) K/mm3 Sodium (137-145) mmol/L Potassium (3.6-5.0) mmol/L Chloride (98-107) mmol/L Carbon Dioxide (22-30) mmol/L BUN (9-20) mg/dL Creatinine (0.8-1.5) mg/dL Glucose (75-100) mg/dL POC Glucose 158 H 137 H 162 H (70-105) 12/09/17 12/09/17 12/09/17 Range/Units 20:44 21:55 23:02 MCV (84-94) fl MCH (28-32) pg MCHC (32-34) % [place] % (Auto) (0.0-7.3) % Lymph # (1.2-5.4) K/mm3 Sodium 136 L (137-145) mmol/L Potassium 3.0 L (3.6-5.0) mmol/L Chloride 96.7 L (98-107) mmol/L Carbon Dioxide 21 L (22-30) mmol/L BUN (9-20) mg/dL Creatinine 0.6 L (0.8-1.5) mg/dL Glucose 137 H (75-100) mg/dL POC Glucose 171 H 147 H (70-105) 12/10/17 12/10/17 12/10/17 Range/Units 00:06 01:36 02:01 MCV (84-94) fl MCH (28-32) pg MCHC (32-34) % [place] % (Auto) (0.0-7.3) % Lymph # (1.2-5.4) K/mm3 Sodium (137-145) mmol/L Potassium (3.6-5.0) mmol/L Chloride (98-107) mmol/L Carbon Dioxide (22-30) mmol/L BUN (9-20) mg/dL Creatinine (0.8-1.5) mg/dL Glucose (75-100) mg/dL POC Glucose 132 H 184 H 182 H (70-105) 12/10/17 12/10/17 12/10/17 Range/Units 03:02 04:00 04:05 MCV (84-94) fl MCH (28-32) pg MCHC (32-34) % [place] % (Auto) (0.0-7.3) % Lymph # (1.2-5.4) K/mm3 Sodium (137-145) mmol/L Potassium 3.0 L (3.6-5.0) mmol/L Chloride (98-107) mmol/L Carbon Dioxide (22-30) mmol/L BUN 8 L (9-20) mg/dL Creatinine 0.5 L (0.8-1.5) mg/dL Glucose 129 H (75-100) mg/dL POC Glucose 133 H 155 H (70-105) 12/10/17 12/10/17 12/10/17 Range/Units 05:03 06:04 07:08 MCV (84-94) fl MCH (28-32) pg MCHC (32-34) % [place] % (Auto) (0.0-7.3) % Lymph # (1.2-5.4) K/mm3 Sodium (137-145) mmol/L Potassium (3.6-5.0) mmol/L Chloride (98-107) mmol/L Carbon Dioxide (22-30) mmol/L BUN (9-20) mg/dL Creatinine (0.8-1.5) mg/dL Glucose (75-100) mg/dL POC Glucose 171 H 163 H 156 H (70-105) 12/10/17 Range/Units Unknown MCV 96 H (84-94) fl MCH 34 H (28-32) pg MCHC 35 H (32-34) % [place] % (Auto) 14.4 H (0.0-7.3) % Lymph # 0.9 L (1.2-5.4) K/mm3 Sodium (137-145) mmol/L Potassium (3.6-5.0) mmol/L Chloride (98-107) mmol/L Carbon Dioxide (22-30) mmol/L BUN (9-20) mg/dL Creatinine (0.8-1.5) mg/dL Glucose (75-100) mg/dL POC Glucose (70-105) All other labs normal. Assessment and Plan Assessment and plan: Impression: Per collateral information from the spouse, the patient has a hx of depression and alcohol abuse. Today the patient is sedated. Medical: Metabolic Encephalopathy Recommendation/Plan: Continue CIWA. Use Ativan only for CIWA Protocol. Will follow up with the patient is 24 hours to complete a thorough psy assessment. Recommend delirium precautions below: 1. Frequently reorient patient and involve him/her in their care (simple explanations of procedures, tests, medications). 2. Lights on and shades open during daytime hours. 3. Try to avoid unnecessary interruptions to sleep during nighttime hours. 4. Obtain glasses, hearing aids from home if patient uses these at baseline. 5. Avoid medications that may exacerbate delirium (especially narcotics, barbiturates, ambien, lunesta, benzos, and medications with excessive anticholinergic properties). If possible, use another medication for pain. 6. Use Haldol 2 mg IM Q6hrs PRN for acute agitation.
[2017-12-10] MEDS ORDERED: HALDOL IM PRN (14:39)
[2017-12-10] MEDS ORDERED: K-DUR PO ONE (16:00)
[2017-12-10 17:29] LABS: BUN/Creatinine Ratio 12; Blood Urea Nitrogen 6 mg/dL (9-20); Calcium 8.5 mg/dL (8.4-10.2); Hemolysis Index 7
[2017-12-10] MEDS ORDERED: KCL 10MEQ/100ML 10 MEQ/100 ML BAG IV SCH (18:00)
[2017-12-10] MEDS ORDERED: D50W (25GM) Syringe IV PRN (18:10)
--- NOTE | 2017-12-10 18:17 | Progress Note ---
Assessment and Plan Assessment and plan: DKA -Patient was managed according to DKA protocol and DKA resolved, currently on sliding scale insulin and consistent carbohydrate diet Metabolic encephalopathy v - Treat the underlying condition - Mental health consult placed - Evaluated by mental health and believes this is due to alcohol withdrawal Metabolic acidosis - Patient is on IV fluids History of pancreatitis Alcohol abuse - Patient is on CIWA protocol Hypokalemia - Repleted - Check BMP and give another 40 mEq of potassium if it's below 3.5 DVT prophylaxis Disposition -Transfer to the floor History Interval history: Patient was seen and evaluated this morning, patient was confused, his was in the room with him and management plan was discussed with her. Hospitalist Physical - Physical exam Narrative exam: Not in cardiopulmonary distress. The patient appeared well nourished and normally developed. Vital signs as documented. Head exam is unremarkable. No scleral icterus . Neck is without jugular venous distension, thyromegaly, or carotid bruits. Lungs are clear to auscultation. Cardiac exam reveals regular rate and Rhythm. First and second heart sounds normal. No murmurs, rubs or gallops. Abdominal exam reveals normal bowel sounds, no masses, no organomegaly and no aortic enlargement. Extremities are nonedematous and both femoral and pedal pulses are normal. STONE CARVER: Patient is confused. - Constitutional Vitals: Temp Pulse Resp BP Pulse Ox 98.0 F 96 H 22 145/94 83 L 12/10/17 04:00 12/10/17 11:41 12/10/17 11:41 12/10/17 11:41 12/10/17 07:00 General appearance: Present: mild distress Results - Labs CBC & Chem 7: 12/10/17 Unknown 12/10/17 16:48 Labs: Laboratory Last Values WBC 5.5 K/mm3 (4.5-11.0) 12/10/17 Unknown RBC 3.74 M/mm3 (3.65-5.03) 12/10/17 Unknown Hgb 12.7 gm/dl (11.8-15.2) 12/10/17 Unknown Hct 35.8 % (35.5-45.6) D 12/10/17 Unknown MCV 96 fl (84-94) H 12/10/17 Unknown MCH 34 pg (28-32) H 12/10/17 Unknown MCHC 35 % (32-34) H 12/10/17 Unknown RDW 15.2 % (13.2-15.2) 12/10/17 Unknown Plt Count 143 K/mm3 (140-440) 12/10/17 Unknown Lymph % (Auto) 15.5 % (13.4-35.0) 12/10/17 Unknown [place] % (Auto) 14.4 % (0.0-7.3) H 12/10/17 Unknown Eos % (Auto) 0.4 % (0.0-4.3) 12/10/17 Unknown Baso % (Auto) 0.2 % (0.0-1.8) 12/10/17 Unknown Lymph # 0.9 K/mm3 (1.2-5.4) L 12/10/17 Unknown [place] # 0.8 K/mm3 (0.0-0.8) 12/10/17 Unknown Eos # 0.0 K/mm3 (0.0-0.4) 12/10/17 Unknown Baso # 0.0 K/mm3 (0.0-0.1) 12/10/17 Unknown Add Manual Diff Complete 12/08/17 12:44 Total Counted 100 12/08/17 12:44 Seg Neutrophils % 69.5 % (40.0-70.0) 12/10/17 Unknown Seg Neuts % (Manual) 76.0 % (40.0-70.0) H 12/08/17 12:44 Band Neutrophils % 7.0 % 12/08/17 12:44 Lymphocytes % (Manual) 4.0 % (13.4-35.0) L 12/08/17 12:44 Reactive Lymphs % (Man) 0 % 12/08/17 12:44 Monocytes % (Manual) 13.0 % (0.0-7.3) H 12/08/17 12:44 Eosinophils % (Manual) 0 % (0.0-4.3) 12/08/17 12:44 Basophils % (Manual) 0 % (0.0-1.8) 12/08/17 12:44 Metamyelocytes % 0 % 12/08/17 12:44 Myelocytes % 0 % 12/08/17 12:44 Promyelocytes % 0 % 12/08/17 12:44 Blast Cells % 0 % 12/08/17 12:44 Nucleated RBC % Not Reportable 12/08/17 12:44 Seg Neutrophils # 3.8 K/mm3 (1.8-7.7) 12/10/17 Unknown Seg Neutrophils # Man 11.3 K/mm3 (1.8-7.7) H 12/08/17 12:44 Band Neutrophils # 1.0 K/mm3 12/08/17 12:44 Lymphocytes # (Manual) 0.6 K/mm3 (1.2-5.4) L 12/08/17 12:44 Abs React Lymphs (Man) 0.0 K/mm3 12/08/17 12:44 Monocytes # (Manual) 1.9 K/mm3 (0.0-0.8) H 12/08/17 12:44 Eosinophils # (Manual) 0.0 K/mm3 (0.0-0.4) 12/08/17 12:44 Basophils # (Manual) 0.0 K/mm3 (0.0-0.1) 12/08/17 12:44 Metamyelocytes # 0.0 K/mm3 12/08/17 12:44 Myelocytes # 0.0 K/mm3 12/08/17 12:44 Promyelocytes # 0.0 K/mm3 12/08/17 12:44 Blast Cells # 0.0 K/mm3 12/08/17 12:44 WBC Morphology Not Reportable 12/08/17 12:44 Hypersegmented Neuts Not Reportable 12/08/17 12:44 Hyposegmented Neuts Not Reportable 12/08/17 12:44 Hypogranular Neuts Not Reportable 12/08/17 12:44 Smudge Cells Not Reportable 12/08/17 12:44 Toxic Granulation Not Reportable 12/08/17 12:44 Toxic Vacuolation Not Reportable 12/08/17 12:44 Dohle Bodies Not Reportable 12/08/17 12:44 Pelger-Huet Anomaly Not Reportable 12/08/17 12:44 Josephine Rods Not Reportable 12/08/17 12:44 Platelet Estimate Not Reportable 12/08/17 12:44 Clumped Platelets Not Reportable 12/08/17 12:44 Plt Clumps, EDTA Not Reportable 12/08/17 12:44 Large Platelets Not Reportable 12/08/17 12:44 Giant Platelets Not Reportable 12/08/17 12:44 Platelet Satelliting Not Reportable 12/08/17 12:44 Plt Morphology Comment Not Reportable 12/08/17 12:44 RBC Morphology Not Reportable 12/08/17 12:44 Dimorphic RBCs Not Reportable 12/08/17 12:44 Polychromasia Not Reportable 12/08/17 12:44 Hypochromasia Not Reportable 12/08/17 12:44 Poikilocytosis Not Reportable 12/08/17 12:44 Anisocytosis 1+ 12/08/17 12:44 Microcytosis Not Reportable 12/08/17 12:44 Macrocytosis Not Reportable 12/08/17 12:44 Spherocytes Not Reportable 12/08/17 12:44 Pappenheimer Bodies Not Reportable 12/08/17 12:44 Sickle Cells Not Reportable 12/08/17 12:44 Target Cells Not Reportable 12/08/17 12:44 Tear Drop Cells Not Reportable 12/08/17 12:44 Ovalocytes Not Reportable 12/08/17 12:44 Helmet Cells Not Reportable 12/08/17 12:44 [place] Bodies Not Reportable 12/08/17 12:44 [place] Rings Not Reportable 12/08/17 12:44 Alhaji Cells Not Reportable 12/08/17 12:44 Bite Cells Not Reportable 12/08/17 12:44 Crenated Cell Not Reportable 12/08/17 12:44 Elliptocytes Not Reportable 12/08/17 12:44 Acanthocytes (Spur) Not Reportable 12/08/17 12:44 Rouleaux Not Reportable 12/08/17 12:44 Hemoglobin C Crystals Not Reportable 12/08/17 12:44 Schistocytes Not Reportable 12/08/17 12:44 Malaria parasites Not Reportable 12/08/17 12:44 Sonido Bodies Not Reportable 12/08/17 12:44 Hem Pathologist Commnt No 12/08/17 12:44 VBG pH 6.977 (7.320-7.420) L* 12/08/17 12:44 Sodium 137 mmol/L (137-145) 12/10/17 16:48 Potassium 2.9 mmol/L (3.6-5.0) L* 12/10/17 16:48 Chloride 95.8 mmol/L (98-107) L 12/10/17 16:48 Carbon Dioxide 24 mmol/L (22-30) 12/10/17 16:48 Anion Gap 20 mmol/L 12/10/17 16:48 BUN 6 mg/dL (9-20) L 12/10/17 16:48 Creatinine 0.5 mg/dL (0.8-1.5) L 12/10/17 16:48 Estimated GFR > 60 ml/min 12/10/17 16:48 BUN/Creatinine Ratio 12 % 12/10/17 16:48 Glucose 187 mg/dL (75-100) H 12/10/17 16:48 POC Glucose 156 (70-105) H 12/10/17 07:08 Hemoglobin A1c 8.2 % (4-6) H 12/08/17 16:34 Ketones Quantitative Moderate (Negative) 12/08/17 12:44 Lactic Acid 1.50 mmol/L (0.7-2.0) 12/09/17 01:22 Calcium 8.5 mg/dL (8.4-10.2) 12/10/17 16:48 Phosphorus 1.20 mg/dL (2.5-4.5) L 12/08/17 16:37 Magnesium 2.00 mg/dL (1.7-2.3) 12/08/17 16:37 Total Bilirubin 1.10 mg/dL (0.1-1.2) 12/08/17 12:44 Direct Bilirubin 0.5 mg/dL (0-0.2) H 12/08/17 12:44 Indirect Bilirubin 0.6 mg/dL 12/08/17 12:44 AST 41 units/L (5-40) H 12/08/17 12:44 ALT 55 units/L (7-56) 12/08/17 12:44 Alkaline Phosphatase 121 units/L (35-129) 12/08/17 12:44 Troponin T < 0.010 ng/mL (0.00-0.029) 12/08/17 12:44 Total Protein 7.9 g/dL (6.3-8.2) 12/08/17 12:44 Albumin 4.3 g/dL (3.9-5) 12/08/17 12:44 Albumin/Globulin Ratio 1.2 % 12/08/17 12:44 Lipase 152 units/L (13-60) H 12/08/17 12:24 Urine Color Yellow (Yellow) 12/08/17 17:21 Urine Turbidity Clear (Clear) 12/08/17 17:21 Urine pH 5.0 (5.0-7.0) 12/08/17 17:21 Ur Specific [place] 1.026 (1.003-1.030) 12/08/17 17:21 Urine Protein 100 mg/dl mg/dL (Negative) 12/08/17 17:21 Urine Glucose (UA) >=500 mg/dL (Negative) 12/08/17 17:21 Urine Ketones 80 mg/dL (Negative) 12/08/17 17:21 Urine Blood Mod (Negative) 12/08/17 17:21 Urine Nitrite Neg (Negative) 12/08/17 17:21 Urine Bilirubin Neg (Negative) 12/08/17 17:21 Urine Urobilinogen 4.0 mg/dL (<2.0) 12/08/17 17:21 Ur Leukocyte Esterase Neg (Negative) 12/08/17 17:21 Urine WBC (Auto) 1.0 /HPF (0.0-6.0) 12/08/17 17:21 Urine RBC (Auto) 1.0 /HPF (0.0-6.0) 12/08/17 17:21 U Epithel Cells (Auto) < 1.0 /HPF (0-13.0) 12/08/17 17:21 Urine Opiates Screen Presumptive negative 12/08/17 17:21 Urine Methadone Screen Presumptive negative 12/08/17 17:21 Ur Barbiturates Screen Presumptive negative 12/08/17 17:21 Ur Phencyclidine Scrn Presumptive negative 12/08/17 17:21 Ur Amphetamines Screen Presumptive negative 12/08/17 17:21 U Benzodiazepines Scrn Presumptive negative 12/08/17 17:21 Urine Cocaine Screen Presumptive negative 12/08/17 17:21 U Marijuana (THC) Screen Presumptive negative 12/08/17 17:21 Drugs of Abuse Note Disclamer 12/08/17 17:21 Plasma/Serum Alcohol < 0.01 % (0-0.07) 12/08/17 15:45
[2017-12-10] MEDS ORDERED: KCL 40 MEQ in NACL 0.9% 500 ML 500 ML IV ONE (20:15)
[2017-12-10] MEDS: LEVEMIR SUB-Q SCH (21:58)
[2017-12-11] MEDS ORDERED: NACL ONE (00:15)
[2017-12-11 01:27] LABS: BUN/Creatinine Ratio 12; Blood Urea Nitrogen 6 mg/dL (9-20); Calcium 8.2 mg/dL (8.4-10.2); Hemolysis Index 10
--- NOTE | 2017-12-11 02:01 | Cat Scan Report ---
FINAL REPORT EXAM: CT ANGIO CHEST HISTORY: graound glass opacities in the lower lung zone TECHNIQUE: A CT angiogram was obtained of the chest following the intravenous injection of 100 cc of Omnipaque 350. Rotational, sagittal coronal MIP reconstructions were reviewed FINDINGS: There is no evidence of pulmonary embolus or aortic dissection. The thoracic aorta is normal in caliber. The heart size is normal. Pericardial fluid is not seen. The lungs reveal atelectatic changes in both lower lobes. Pleural fluid is not seen. There is non specific areas of ground-glass attenuation in the lingula consistent with interstitial disease. The lungs are not congested. At the thoracic inlet the thyroid gland appears normal. The skeletal structures otherwise reveal non specific radiolucent areas in the left humeral head. A bones cyst Cannot be excluded. No definite fracture is identified. In the upper abdomen there is diminished attenuation of the liver suggesting hepatic steatosis. The adrenal glands appear normal. IMPRESSION: Bibasilar atelectatic changes in the lower lobes. Nonspecific areas of ground-glass attenuation in the lingula compatible with interstitial disease. No evidence of pulmonary embolus, aortic dissection, or pulmonary congestion. Hepatic steatosis. Radiolucent area in the left humeral head. An underlying bone cyst cannot be excluded.
[2017-12-11] MEDS: MORPHINE IV PRN ×4 (02:59→22:29)
[2017-12-11] MEDS: ZOSYN/NS 4.5GM/100ML 4.5 GM/100 ML VIAL IV SCH ×2 (02:59→12:42)
[2017-12-11 07:20] LABS: Basophils % (Auto) 0.4 % (0.0-1.8); Eosinophils # (Auto) 0.1 K/mm3 (0.0-0.4); Eosinophils % (Auto) 1.2 % (0.0-4.3); Hemoglobin 12.5 gm/dl (11.8-15.2); Lymphocytes # (Auto) 1.1 K/mm3 (1.2-5.4); Lymphocytes % (Auto) 23.5 % (13.4-35.0); Mean Corpuscular HGB Conc 36 % (32-34); Mean Corpuscular Hemoglobin 34 pg (28-32); Mean Corpuscular Volume 96 fl (84-94); Monocytes # (Auto) 0.7 K/mm3 (0.0-0.8); Monocytes % (Auto) 13.8 % (0.0-7.3); Platelet Count 163 K/mm3 (140-440); Red Blood Count 3.66 M/mm3 (3.65-5.03); Red Cell Distribution Width 15.2 % (13.2-15.2)
[2017-12-11] MEDS: VANCOMYCIN/0.45 NS 1 GM/250 ML 1 GM/250 ML BAG IV SCH ×2 (08:03→16:41)
[2017-12-11] MEDS: NOVOLOG SUB-Q SCH ×4 (08:06→21:38)
[2017-12-11] MEDS ORDERED: NACL 0.45% 1000 ML 2,000 ML IV SCH (09:00)
[2017-12-11] MEDS ORDERED: K-DUR PO NR ×2 (09:00→11:30)
[2017-12-11] MEDS: FOLVITE PO SCH (09:04)
[2017-12-11] MEDS: THERAGRAN-M Tab PO SCH (09:04)
[2017-12-11] MEDS: VITAMIN B-1 PO SCH (09:04)
[2017-12-11] MEDS: LEVEMIR SUB-Q SCH ×2 (11:14→21:38)
--- NOTE | 2017-12-11 12:51 | Progress Note ---
Subjective - Reason for Consult Consult date: 12/11/17 Reason for consult: Psychiatry Follow-up - Chief Complaint Chief complaint: "Hello" 47 y.o. white male witha recent history of pancreatitis, ETOH, and DKA presents with kussmaul respiration. Today the patient is calm and cooperative during the assessment. He stated that he has a hx of depression and alcoholism. He stated that he last took Paxil and it was effective over a year ago. He stated that he would like to stop drinking because he is aware of the issues that come with alcoholism. He stated drinking (etoh) for several years, but his consumption of alcohol has increased the last 2 years. He stated multiple rehabs services, but would relapse. He stated that he isolates himself from his family and have days of feeling sad, helpless, and hopeless but can't explain why. He denies SI's and prior suicide attempts. He stated that he want his life to change and to be a better man. He denies HI's and AVH's. He rate his depression 5/10, with 10 being the worse. He stated that he "struggles" with anxiety. He stated that he worries about his diabetes and his life all the time. Mental Status Exam - Vital signs Last Vital Signs Temp 98.9 F 12/11/17 06:10 Pulse 92 H 12/11/17 06:10 Resp 18 12/11/17 06:10 BP 117/73 12/11/17 06:10 Pulse Ox 97 12/11/17 06:10 - Exam Narrative exam: MSE: Appearance: calm, cooperative Behavior: regular eye contact Speech: regular rate and tone Mood: "okay" Affect: congruent to mood Thought Process: linear Thought Content: denies SI/HI's and AVH's Motor Activity: sitting up in the bed Cognition: A/O x 3 Insight: appropriate Judgment: appropriate Assessment and Plan impression: MDD. Alcohol Use DO. MATTIE. Today the patient is calm and cooperative during the assessment. No acute withdrawals noted (etoh). Recommendation/Plan: Continue to assess the need for CIWA. The patient can swallow, Ativan can be modified to PO administration per CIWA. Start Paxil 10 mg PO daily for Depression/Anxiety and Vistaril 25 mg PO Q6hrs for acute anxiety. Discussed possible suicidality/medication induced odette with patient reference Paxil. Will follow up with patient in the AM. Discussed [facility] with patient, he stated that he would consider the program once discharged. Discussed the importance to abstain from alcohol consumption with patient.
[2017-12-11] MEDS ORDERED: VISTARIL PO PRN (14:56)
[2017-12-11 14:57] LABS: BUN/Creatinine Ratio 10; Blood Urea Nitrogen 5 mg/dL (9-20); Calcium 8.1 mg/dL (8.4-10.2); Hemolysis Index 3
[2017-12-11] MEDS: PAXIL PO SCH (16:09)
[2017-12-11] MEDS: K-DUR PO SCH ×2 (16:40→17:17)
--- NOTE | 2017-12-11 16:44 | Progress Note ---
Assessment and Plan Assessment and plan: DKA -Patient was managed according to DKA protocol and DKA resolved, currently on sliding scale insulin and consistent carbohydrate diet Metabolic encephalopathy - Treat the underlying condition - Mental health consult placed - Evaluated by mental health and believes this is due to alcohol withdrawal Major depressive disorder - Patient is started on paxil per psych Metabolic acidosis - Patient is on IV fluids History of pancreatitis Alcohol abuse - Patient is on CIWA protocol Hypokalemia - Repleted -will give him a total of 80meq and will check Blood cultures negative, no leukocytosis, and antibiotics discontinued. DVT prophylaxis Disposition -Continue inpatient care. History Interval history: Patient was seen and evaluated this morning, patient is alert and oriented today , not on any restraints. Hospitalist Physical - Physical exam Narrative exam: Not in cardiopulmonary distress. The patient appeared well nourished and normally developed. Vital signs as documented. Head exam is unremarkable. No scleral icterus . Neck is without jugular venous distension, thyromegaly, or carotid bruits. Lungs are clear to auscultation. Cardiac exam reveals regular rate and Rhythm. First and second heart sounds normal. No murmurs, rubs or gallops. Abdominal exam reveals normal bowel sounds, no masses, no organomegaly and no aortic enlargement. Extremities are nonedematous and both femoral and pedal pulses are normal. TRANSPORTER RADIOLOGY: Patient was alert and oriented. - Constitutional Vitals: Temp Pulse Resp BP Pulse Ox 97.4 F L 100 H 20 109/77 97 12/11/17 13:11 12/11/17 13:11 12/11/17 16:10 12/11/17 13:11 12/11/17 13:11 General appearance: Present: mild distress Results - Labs CBC & Chem 7: 12/11/17 06:18 12/11/17 14:01 Labs: Laboratory Last Values WBC 4.8 K/mm3 (4.5-11.0) 12/11/17 06:18 RBC 3.66 M/mm3 (3.65-5.03) 12/11/17 06:18 Hgb 12.5 gm/dl (11.8-15.2) 12/11/17 06:18 Hct 35.0 % (35.5-45.6) L 12/11/17 06:18 MCV 96 fl (84-94) H 02/16/18 06:18 MCH 34 pg (28-32) H 12/11/17 06:18 MCHC 36 % (32-34) H 12/11/17 06:18 RDW 15.2 % (13.2-15.2) 12/11/17 06:18 Plt Count 163 K/mm3 (140-440) 12/11/17 06:18 Lymph % (Auto) 23.5 % (13.4-35.0) 12/11/17 06:18 [place] % (Auto) 13.8 % (0.0-7.3) H 12/11/17 06:18 Eos % (Auto) 1.2 % (0.0-4.3) 12/11/17 06:18 Baso % (Auto) 0.4 % (0.0-1.8) 12/11/17 06:18 Lymph # 1.1 K/mm3 (1.2-5.4) L 12/11/17 06:18 [place] # 0.7 K/mm3 (0.0-0.8) 12/11/17 06:18 Eos # 0.1 K/mm3 (0.0-0.4) 12/11/17 06:18 Baso # 0.0 K/mm3 (0.0-0.1) 12/11/17 06:18 Add Manual Diff Complete 12/08/17 12:44 Total Counted 100 12/08/17 12:44 Seg Neutrophils % 61.1 % (40.0-70.0) 12/11/17 06:18 Seg Neuts % (Manual) 76.0 % (40.0-70.0) H 12/08/17 12:44 Band Neutrophils % 7.0 % 12/08/17 12:44 Lymphocytes % (Manual) 4.0 % (13.4-35.0) L 12/08/17 12:44 Reactive Lymphs % (Man) 0 % 12/08/17 12:44 Monocytes % (Manual) 13.0 % (0.0-7.3) H 12/08/17 12:44 Eosinophils % (Manual) 0 % (0.0-4.3) 12/08/17 12:44 Basophils % (Manual) 0 % (0.0-1.8) 12/08/17 12:44 Metamyelocytes % 0 % 12/08/17 12:44 Myelocytes % 0 % 12/08/17 12:44 Promyelocytes % 0 % 12/08/17 12:44 Blast Cells % 0 % 12/08/17 12:44 Nucleated RBC % Not Reportable 12/08/17 12:44 Seg Neutrophils # 2.9 K/mm3 (1.8-7.7) 12/11/17 06:18 Seg Neutrophils # Man 11.3 K/mm3 (1.8-7.7) H 12/08/17 12:44 Band Neutrophils # 1.0 K/mm3 12/08/17 12:44 Lymphocytes # (Manual) 0.6 K/mm3 (1.2-5.4) L 12/08/17 12:44 Abs React Lymphs (Man) 0.0 K/mm3 12/08/17 12:44 Monocytes # (Manual) 1.9 K/mm3 (0.0-0.8) H 12/08/17 12:44 Eosinophils # (Manual) 0.0 K/mm3 (0.0-0.4) 12/08/17 12:44 Basophils # (Manual) 0.0 K/mm3 (0.0-0.1) 12/08/17 12:44 Metamyelocytes # 0.0 K/mm3 12/08/17 12:44 Myelocytes # 0.0 K/mm3 12/08/17 12:44 Promyelocytes # 0.0 K/mm3 12/08/17 12:44 Blast Cells # 0.0 K/mm3 12/08/17 12:44 WBC Morphology Not Reportable 12/08/17 12:44 Hypersegmented Neuts Not Reportable 12/08/17 12:44 Hyposegmented Neuts Not Reportable 12/08/17 12:44 Hypogranular Neuts Not Reportable 12/08/17 12:44 Smudge Cells Not Reportable 12/08/17 12:44 Toxic Granulation Not Reportable 12/08/17 12:44 Toxic Vacuolation Not Reportable 12/08/17 12:44 Dohle Bodies Not Reportable 12/08/17 12:44 Pelger-Huet Anomaly Not Reportable 12/08/17 12:44 Josephine Rods Not Reportable 12/08/17 12:44 Platelet Estimate Not Reportable 12/08/17 12:44 Clumped Platelets Not Reportable 12/08/17 12:44 Plt Clumps, EDTA Not Reportable 12/08/17 12:44 Large Platelets Not Reportable 12/08/17 12:44 Giant Platelets Not Reportable 12/08/17 12:44 Platelet Satelliting Not Reportable 12/08/17 12:44 Plt Morphology Comment Not Reportable 12/08/17 12:44 RBC Morphology Not Reportable 12/08/17 12:44 Dimorphic RBCs Not Reportable 12/08/17 12:44 Polychromasia Not Reportable 12/08/17 12:44 Hypochromasia Not Reportable 12/08/17 12:44 Poikilocytosis Not Reportable 12/08/17 12:44 Anisocytosis 1+ 12/08/17 12:44 Microcytosis Not Reportable 12/08/17 12:44 Macrocytosis Not Reportable 12/08/17 12:44 Spherocytes Not Reportable 12/08/17 12:44 Pappenheimer Bodies Not Reportable 12/08/17 12:44 Sickle Cells Not Reportable 12/08/17 12:44 Target Cells Not Reportable 12/08/17 12:44 Tear Drop Cells Not Reportable 12/08/17 12:44 Ovalocytes Not Reportable 12/08/17 12:44 Helmet Cells Not Reportable 12/08/17 12:44 [place] Bodies Not Reportable 12/08/17 12:44 [place] Rings Not Reportable 12/08/17 12:44 [place]haji Cells Not Reportable 12/08/17 12:44 Bite Cells Not Reportable 12/08/17 12:44 Crenated Cell Not Reportable 12/08/17 12:44 Elliptocytes Not Reportable 12/08/17 12:44 Acanthocytes (Spur) Not Reportable 12/08/17 12:44 Rouleaux Not Reportable 12/08/17 12:44 Hemoglobin C Crystals Not Reportable 12/08/17 12:44 Schistocytes Not Reportable 12/08/17 12:44 Malaria parasites Not Reportable 12/08/17 12:44 Sonido Bodies Not Reportable 12/08/17 12:44 Hem Pathologist Commnt No 12/08/17 12:44 VBG pH 6.977 (7.320-7.420) L* 12/08/17 12:44 Sodium 141 mmol/L (137-145) 12/11/17 14:01 Potassium 2.9 mmol/L (3.6-5.0) L* 12/11/17 14:01 Chloride 103.0 mmol/L (98-107) 12/11/17 14:01 Carbon Dioxide 24 mmol/L (22-30) 12/11/17 14:01 Anion Gap 17 mmol/L 12/11/17 14:01 BUN 5 mg/dL (9-20) L 12/11/17 14:01 Creatinine 0.5 mg/dL (0.8-1.5) L 12/11/17 14:01 Estimated GFR > 60 ml/min 12/11/17 14:01 BUN/Creatinine Ratio 10 % 12/11/17 14:01 Glucose 191 mg/dL (75-100) H 12/11/17 14:01 POC Glucose 226 (70-105) H 12/11/17 10:57 Hemoglobin A1c 8.2 % (4-6) H 12/08/17 16:34 Ketones Quantitative Moderate (Negative) 12/08/17 12:44 Lactic Acid 1.50 mmol/L (0.7-2.0) 12/09/17 01:22 Calcium 8.1 mg/dL (8.4-10.2) L 12/11/17 14:01 Phosphorus 1.20 mg/dL (2.5-4.5) L 12/08/17 16:37 Magnesium 2.00 mg/dL (1.7-2.3) 12/08/17 16:37 Total Bilirubin 1.10 mg/dL (0.1-1.2) 12/08/17 12:44 Direct Bilirubin 0.5 mg/dL (0-0.2) H 12/08/17 12:44 Indirect Bilirubin 0.6 mg/dL 12/08/17 12:44 AST 41 units/L (5-40) H 12/08/17 12:44 ALT 55 units/L (7-56) 12/08/17 12:44 Alkaline Phosphatase 121 units/L (35-129) 12/08/17 12:44 Troponin T < 0.010 ng/mL (0.00-0.029) 12/08/17 12:44 Total Protein 7.9 g/dL (6.3-8.2) 12/08/17 12:44 Albumin 4.3 g/dL (3.9-5) 12/08/17 12:44 Albumin/Globulin Ratio 1.2 % 12/08/17 12:44 Lipase 152 units/L (13-60) H 12/08/17 12:24 Urine Color Yellow (Yellow) 12/08/17 17:21 Urine Turbidity Clear (Clear) 12/08/17 17:21 Urine pH 5.0 (5.0-7.0) 12/08/17 17:21 Ur Specific [place] 1.026 (1.003-1.030) 12/08/17 17:21 Urine Protein 100 mg/dl mg/dL (Negative) 12/08/17 17:21 Urine Glucose (UA) >=500 mg/dL (Negative) 12/08/17 17:21 Urine Ketones 80 mg/dL (Negative) 12/08/17 17:21 Urine Blood Mod (Negative) 12/08/17 17:21 Urine Nitrite Neg (Negative) 12/08/17 17:21 Urine Bilirubin Neg (Negative) 12/08/17 17:21 Urine Urobilinogen 4.0 mg/dL (<2.0) 12/08/17 17:21 Ur Leukocyte Esterase Neg (Negative) 12/08/17 17:21 Urine WBC (Auto) 1.0 /HPF (0.0-6.0) 12/08/17 17:21 Urine RBC (Auto) 1.0 /HPF (0.0-6.0) 12/08/17 17:21 U Epithel Cells (Auto) < 1.0 /HPF (0-13.0) 12/08/17 17:21 Urine Opiates Screen Presumptive negative 12/08/17 17:21 Urine Methadone Screen Presumptive negative 12/08/17 17:21 Ur Barbiturates Screen Presumptive negative 12/08/17 17:21 Ur Phencyclidine Scrn Presumptive negative 12/08/17 17:21 Ur Amphetamines Screen Presumptive negative 12/08/17 17:21 U Benzodiazepines Scrn Presumptive negative 12/08/17 17:21 Urine Cocaine Screen Presumptive negative 12/08/17 17:21 U Marijuana (THC) Screen Presumptive negative 12/08/17 17:21 Drugs of Abuse Note Disclamer 12/08/17 17:21 Plasma/Serum Alcohol < 0.01 % (0-0.07) 12/08/17 15:45 Hypokalemia, repleted
[2017-12-12] MEDS: MORPHINE IV PRN ×2 (04:55→09:35)
[2017-12-12 05:19] LABS: Basophils % (Auto) 0.8 % (0.0-1.8); Eosinophils # (Auto) 0.1 K/mm3 (0.0-0.4); Hematocrit 34.9 % (35.5-45.6); Hemoglobin 12.2 gm/dl (11.8-15.2); Lymphocytes # (Auto) 1.2 K/mm3 (1.2-5.4); Lymphocytes % (Auto) 26.4 % (13.4-35.0); Mean Corpuscular HGB Conc 35 % (32-34); Mean Corpuscular Hemoglobin 34 pg (28-32); Mean Corpuscular Volume 98 fl (84-94); Monocytes # (Auto) 0.7 K/mm3 (0.0-0.8); Monocytes % (Auto) 15.2 % (0.0-7.3); Platelet Count 215 K/mm3 (140-440); Red Blood Count 3.58 M/mm3 (3.65-5.03)
[2017-12-12 05:39] LABS: BUN/Creatinine Ratio 7; Blood Urea Nitrogen 4 mg/dL (9-20); Calcium 8.4 mg/dL (8.4-10.2); Hemolysis Index 5
[2017-12-12] MEDS: NOVOLOG SUB-Q SCH (08:30)
[2017-12-12] MEDS: VITAMIN B-1 PO SCH (09:35)
[2017-12-12] MEDS: FOLVITE PO SCH (09:35)
[2017-12-12] MEDS: THERAGRAN-M Tab PO SCH (09:35)
[2017-12-12] MEDS: LEVEMIR SUB-Q SCH (10:00)
[2017-12-12] MEDS: PAXIL PO SCH (10:15)
--- NOTE | 2017-12-12 11:32 | Discharge Summary ---
Providers - Providers Date of Admission: 12/08/17 16:34 Attending physician: MARY SANTIAGO MD 12/08/17 16:40 psychiatry consult [Consult to Mental Health] [CONS] Routine Reason For Exam: depression Place consult to:: Christopher Notified:: yes Phone number called:: [phone] Was contact made?: Yes If yes, spoke with:: Christopher Time called:: 08:05 Hospitalization Reason for admission: DKA, major depression, anxiety disorder Condition: Stable Hospital course: 47 YO Male with ETOH Dependence, ETOH Pancreatitis, DM, Medication Noncompliance , Depression presents to ED for evaluation. Pt states that he feels sick. Pt is unable to provide detailed history, but patient and mother are at bedside and provide history. As per family, patient has become increasingly confused, and weak over the past 2 days. No reports of fever, chills, CP, Palpitations, NVD, Syncope, Trauma, Seizures, or recent ill contacts. Pt seen and evaluated in ED and found to have DKA, with Severe metabolic acidosis, as well and metabolic encephalopathy. Pt also found to have sepsis. Pt admitted to ICU and initiated on DKA protocol, as well as sepsis protocol. Patient was admitted to ICU and managed for DKA according to DKA protocol. DKA resolved. Patient was treated for alcohol withdrawal according to CIWA protocol. Patient was evaluated by psych and diagnosed with major depression disorder and anxiety disorder. [facility] I have communicated with the [facility] doctor and she said she will arrange follow-up for psychiatry. Disposition: TO HOME OR SELFCARE Time spent for discharge: 31 minutes - Discharge Diagnoses (1) Alcohol dependence Status: Acute Qualifiers: Substance use status: in withdrawal Complication of substance-induced condition: with perceptual disturbance Qualified Code(s): F10.232 - Alcohol dependence with withdrawal with perceptual disturbance (2) DKA (diabetic ketoacidoses) Status: Acute (3) Encephalopathy Status: Acute (4) Metabolic acidosis Status: Acute (5) Diabetes Status: Acute Core Measure Documentation - Palliative Care Palliative Care/ Comfort Measures: Not Applicable - Core Measures Any of the following diagnoses?: none Exam - Physical Exam Narrative exam: Not in cardiopulmonary distress. The patient appeared well nourished and normally developed. Vital signs as documented. Head exam is unremarkable. No scleral icterus . Neck is without jugular venous distension, thyromegaly, or carotid bruits. Lungs are clear to auscultation. Cardiac exam reveals regular rate and Rhythm. First and second heart sounds normal. No murmurs, rubs or gallops. Abdominal exam reveals normal bowel sounds, no masses, no organomegaly and no aortic enlargement. Extremities are nonedematous and both femoral and pedal pulses are normal. SALES ACCOUNT ASSOCIATE: Patient was alert and oriented. - Constitutional Vitals: Temp Pulse Resp BP Pulse Ox 98.3 F 74 18 116/71 96 12/12/17 04:37 12/12/17 04:37 12/12/17 04:37 12/12/17 04:37 12/12/17 04:37 Plan Activity: no restrictions Weight Bearing Status: Full Weight Bearing Diet: diabetic Follow up with: JENNIFER CARBAJAL [Other] - 7 Days (Patient is diagnosed with anxiety disorder and depression, I discussed with the Karthikeyan ng and said they will arrange the psych followup.) Prescriptions: hydrOXYzine PAMOATE [Vistaril] 25 mg PO Q6H PRN #60 capsule PRN Reason: Anxiety PARoxetine [Paxil] 10 mg PO QDAY #30 tablet
[2017-12-12 15:15] VITALS: BP 129/89
== END 2017-12-12 14:20 | disposition home or self-care (01) | DRG 871 ==
LOC: ED 11:43 → CC1 16:34 → 4A 12-09 23:26 → CC1 12-09 23:38 → 4A 12-10 22:48
PROVIDERS: ADMIT Internal Medicine; ATTEND Internal Medicine
DX: A41.9 Sepsis, unspecified organism (principal); E11.10 Type 2 diabetes mellitus with ketoacidosis without coma; G93.41 Metabolic encephalopathy; Z79.4 Long term (current) use of insulin; F10.20 Alcohol dependence, uncomplicated; Z91.14 Patient's other noncompliance with medication regimen; F32.9 Major depressive disorder, single episode, unspecified; Z83.3 Family history of diabetes mellitus; Z82.49 Family history of ischemic heart disease and other diseases of the circulatory system; Z79.899 Other long term (current) drug therapy; F41.1 Generalized anxiety disorder; E87.6 Hypokalemia
CPT/HCPCS: 36415; 71045; 71275; 74176; 80048; 80074; 80307; 80320; 81001; 82010; 82140; 82805; 82962; 83036; 83690; 83735; 84100; 84132; 84484; 85007; 85025; 87040; 93005; 93010; 99291; G0480; J0456; J0696; J1170; J1630; J1815; J1818; J2060; J2270; J2405; J2543; J3370; J3480; J7030; J7040; J7042; J7050; J7070; Q9967

== ENCOUNTER 2020-10-15 12:09 | Emergency (ER) | payer OTHER ==
--- NOTE | 2020-10-15 13:41 | Event Note ---
ED Screening Note ED Screening Note: states he was admitted at [facility] 1 1/2 weeks ago and stayed one night states he is concerned about his blood sugar states he has stomach ache, back ache, n/v COVID-19 test yesterday and reports it was negative +dry cough for a couple of weeks no diarrhea no fever no SOB no sick contacts no recent travel PMHx none no allergies to meds takes novolog, uses a sliding scale This initial assessment/diagnostic orders/clinical plan/treatment(s) is/are subject to change based on patients health status, clinical progression and re- assessment by fellow clinical providers in the ED. Further treatment and workup at subsequent clinical providers discretion. Patient/guardian urged not to elope from the ED as their condition may be serious if not clinically assessed and managed. Initial orders include: labs UA CXR
--- NOTE | 2020-10-15 14:08 | XRay Report ---
CHEST PA AND LATERAL VIEWS INDICATION: cough. COMPARISON: None. FINDINGS: Support devices: None. Heart: Within normal limits. Lungs/Pleura: No acute pulmonary or pleural findings. IMPRESSION: 1. No acute findings. Signer Name: Kevin Etienne MD Signed: 10/15/2020 2:04 PM Workstation Name: [id number]
[2020-10-15 14:25] LABS: Bilirubin,Urine NEG (Negative); Blood,Urine SM (Negative); Color,Urine Yellow (Yellow); Urobilinogen,Urine < 2.0 mg/dL (<2.0); WBC,Urine < 1.0 /HPF (0.0-6.0)
[2020-10-15 14:29] LABS: Basophils % (Auto) 0.5 % (0.0-1.8); Eosinophils % (Auto) 0.5 % (0.0-4.3); Hematocrit 47.1 % (35.5-45.6); Hemoglobin 16.5 gm/dl (11.8-15.2); Lymphocytes # (Auto) 1.8 K/mm3 (1.2-5.4); Lymphocytes % (Auto) 28.9 % (13.4-35.0); Mean Corpuscular HGB Conc 35 % (32-34); Mean Corpuscular Volume 95 fl (84-94); Monocytes # (Auto) 0.4 K/mm3 (0.0-0.8); Monocytes % (Auto) 7.2 % (0.0-7.3); Platelet Count 167 K/mm3 (140-440); Red Blood Count 4.98 M/mm3 (3.65-5.03); Red Cell Distribution Width 14.4 % (13.2-15.2)
[2020-10-15 15:00] LABS: Alanine Aminotransferase 66 units/L (7-56); Albumin 4.6 g/dL (3.9-5); Blood Urea Nitrogen 9 mg/dL (9-20); Calcium 9.6 mg/dL (8.4-10.2); Hemolysis Index 29
[2020-10-15 15:08] LABS: BUN/Creatinine Ratio 13
[2020-10-15] MEDS ORDERED: SODIUM CHLORIDE 0.9% 1000 ML 1,000 ML IV ONE (16:53)
[2020-10-15] MEDS ORDERED: ONDANSETRON 4 MG/2 ML INJ IV ONE (16:59)
[2020-10-15] MEDS ORDERED: FAMOTIDINE 20 MG/2 ML INJ IV ONE (16:59)
[2020-10-15] MEDS ORDERED: KETOROLAC 30 MG/1 ML INJ IV ONE (16:59)
[2020-10-15] MEDS: SODIUM CHLORIDE 0.9% 1000 ML 1,000 ML IV ONE ×2 (17:30→17:45)
[2020-10-15 18:10] VITALS: BP 133/75
--- NOTE | 2020-10-15 18:28 | Emergency Department Report ---
ED General Adult HPI - General Chief complaint: Hyperglycemia Stated complaint: HIGH BLOOD SUGAR Time Seen by Provider: 10/15/20 13:39 Source: patient Mode of arrival: Ambulatory Limitations: No Limitations - History of Present Illness Initial comments: Patient is a 50-year-old male with past medical history of diabetes who is presenting with complaints of "I think I am in DKA". Patient states for last 2 days he says nausea vomiting is crampy epigastric pain. He also states he has pains all over his arms legs and back. Denies diarrhea cough cold congestion fevers or chills. Patient states he feels the same as he did when he had DKA. Severity scale (0 -10): 10 - Related Data Home Medications Medication Instructions Recorded Confirmed Last Taken Gemfibrozil [Lopid] 600 mg PO QDAY 12/08/17 12/08/17 Unknown Insulin Glargine,Hum.rec.anlog 40 - 45 units SUB-Q DAILY 12/08/17 12/08/17 Unknown [Lantus Solostar] Insulin Lispro [Humalog 100 10 - 15 units SUB-Q TID 12/08/17 12/08/17 12/08/17 UNITS/ML Kwikpen] Levothyroxine [Synthroid] 50 mcg PO QDAY 12/08/17 12/08/17 Unknown Lisinopril [Zestril] 10 mg PO QDAY 12/08/17 12/08/17 Unknown Omeprazole Magnesium [Prilosec Otc] 20 mg PO BID 12/08/17 12/08/17 Unknown Pravastatin Sodium [Pravastatin] 10 mg PO DAILY 12/08/17 12/08/17 Unknown Trazodone HCl 50 mg PO HS PRN 12/08/17 12/08/17 Unknown Previous Rx's Medication Instructions Recorded Last Taken Type PARoxetine [Paxil] 10 mg PO QDAY #30 tablet 12/12/17 Unknown Rx hydrOXYzine PAMOATE [Vistaril] 25 mg PO Q6H PRN #60 capsule 12/12/17 Unknown Rx Docusate Sodium [Colace] 100 mg PO BID PRN #15 capsule 05/21/20 Unknown Rx Famotidine [Pepcid] 40 mg PO QHS #10 tablet 10/15/20 Unknown Rx Ondansetron [Zofran Odt] 4 mg PO Q8HR #10 tab.rapdis 10/15/20 Unknown Rx Pantoprazole [Protonix] 40 mg PO QDAY #30 tablet 10/15/20 Unknown Rx traMADoL [Ultram] 50 mg PO Q6HR PRN #12 tablet 10/15/20 Unknown Rx Allergies Allergy/AdvReac Type Severity Reaction Status Date / Time No Known Allergies Allergy Verified 10/15/20 12:22 ED Review of Systems ROS: Stated complaint: HIGH BLOOD SUGAR Other details as noted in HPI Comment: All other systems reviewed and negative ED Past Medical Hx - Past Medical History Hx Congestive Heart Failure: No Hx Diabetes: Yes Hx Asthma: No Hx COPD: No Additional medical history: Pancreatitis - Social History Smoking Status: Current Every Day Smoker Substance Use Type: Alcohol - Medications Home Medications: Home Medications Medication Instructions Recorded Confirmed Last Taken Type Gemfibrozil [Lopid] 600 mg PO QDAY 12/08/17 12/08/17 Unknown History Insulin Glargine,Hum.rec.anlog 40 - 45 units SUB-Q DAILY 12/08/17 12/08/17 Unknown History [Lantus Solostar] Insulin Lispro [Humalog 100 10 - 15 units SUB-Q TID 12/08/17 12/08/17 12/08/17 History UNITS/ML Kwikpen] Levothyroxine [Synthroid] 50 mcg PO QDAY 12/08/17 12/08/17 Unknown History Lisinopril [Zestril] 10 mg PO QDAY 12/08/17 12/08/17 Unknown History Omeprazole Magnesium [Prilosec Otc] 20 mg PO BID 12/08/17 12/08/17 Unknown History Pravastatin Sodium [Pravastatin] 10 mg PO DAILY 12/08/17 12/08/17 Unknown History Trazodone HCl 50 mg PO HS PRN 12/08/17 12/08/17 Unknown History PARoxetine [Paxil] 10 mg PO QDAY #30 tablet 12/12/17 Unknown Rx hydrOXYzine PAMOATE [Vistaril] 25 mg PO Q6H PRN #60 capsule 12/12/17 Unknown Rx Docusate Sodium [Colace] 100 mg PO BID PRN #15 capsule 05/21/20 Unknown Rx Famotidine [Pepcid] 40 mg PO QHS #10 tablet 10/15/20 Unknown Rx Ondansetron [Zofran Odt] 4 mg PO Q8HR #10 tab.rapdis 10/15/20 Unknown Rx Pantoprazole [Protonix] 40 mg PO QDAY #30 tablet 10/15/20 Unknown Rx traMADoL [Ultram] 50 mg PO Q6HR PRN #12 tablet 10/15/20 Unknown Rx ED Physical Exam - General Limitations: No Limitations General appearance: alert, in no apparent distress - Head Head exam: Present: atraumatic, normocephalic - Eye Eye exam: Present: normal appearance - ENT ENT exam: Present: mucous membranes moist - Neck Neck exam: Present: normal inspection - Respiratory Respiratory exam: Present: normal lung sounds bilaterally. Absent: respiratory distress, wheezes, rales, rhonchi - Cardiovascular Cardiovascular Exam: Present: regular rate, normal rhythm, normal heart sounds. Absent: systolic murmur, diastolic murmur, rubs, gallop - GI/Abdominal GI/Abdominal exam: Present: soft, tenderness (Epigastric), normal bowel sounds. Absent: distended, guarding, rebound - Rectal Rectal exam: Present: deferred - Extremities Exam Extremities exam: Present: normal inspection - Back Exam Back exam: Present: normal inspection - Neurological Exam Neurological exam: Present: alert, oriented X3 - Psychiatric Psychiatric exam: Present: normal affect, normal mood - Skin Skin exam: Present: warm, dry, intact, normal color. Absent: rash ED Course Vital Signs 10/15/20 10/15/20 10/15/20 12:27 17:46 18:10 Temperature 98.4 F 98 F Pulse Rate 100 H 89 Respiratory 20 18 16 Rate Blood Pressure 137/87 Blood Pressure 133/75 [Left] O2 Sat by Pulse 96 99 Oximetry ED Medical Decision Making - Lab Data Result diagrams: 10/15/20 13:47 10/15/20 13:47 Lab Results 10/15/20 10/15/20 10/15/20 Range/Units 12:29 13:47 13:47 WBC 6.3 (4.5-11.0) K/mm3 RBC 4.98 (3.65-5.03) M/mm3 Hgb 16.5 H (11.8-15.2) gm/dl Hct 47.1 H (35.5-45.6) % MCV 95 H (84-94) fl MCH 33 H (28-32) pg MCHC 35 H (32-34) % RDW 14.4 (13.2-15.2) % Plt Count 167 (140-440) K/mm3 Lymph % (Auto) 28.9 (13.4-35.0) % Bowie % (Auto) 7.2 (0.0-7.3) % Eos % (Auto) 0.5 (0.0-4.3) % Baso % (Auto) 0.5 (0.0-1.8) % Lymph # (Auto) 1.8 (1.2-5.4) K/mm3 Bowie # (Auto) 0.4 (0.0-0.8) K/mm3 Eos # (Auto) 0.0 (0.0-0.4) K/mm3 Baso # (Auto) 0.0 (0.0-0.1) K/mm3 Seg Neutrophils % 62.9 (40.0-70.0) % Seg Neutrophils # 3.9 (1.8-7.7) K/mm3 VBG pH (7.320-7.420) Sodium 133 L (137-145) mmol/L Potassium 5.0 (3.6-5.0) mmol/L Chloride 93.0 L (98-107) mmol/L Carbon Dioxide 20 L (22-30) mmol/L Anion Gap 25 mmol/L BUN 9 (9-20) mg/dL Creatinine 0.7 L (0.8-1.3) mg/dL Estimated GFR > 60 ml/min BUN/Creatinine Ratio 13 % Glucose 284 H (75-100) mg/dL POC Glucose 291 H (70-105) mg/dL Calcium 9.6 (8.4-10.2) mg/dL Total Bilirubin 0.30 (0.1-1.2) mg/dL AST 61 H (5-40) units/L ALT 66 H (7-56) units/L Alkaline Phosphatase 94 (35-129) units/L Total Protein 7.5 (6.3-8.2) g/dL Albumin 4.6 (3.9-5) g/dL Albumin/Globulin Ratio 1.6 % Lipase 15 (13-60) units/L Urine Color (Yellow) Urine Turbidity (Clear) Urine pH (5.0-7.0) Ur Specific [place] (1.003-1.030) Urine Protein (Negative) mg/dL Urine Glucose (UA) (Negative) mg/dL Urine Ketones (Negative) mg/dL Urine Blood (Negative) Urine Nitrite (Negative) Urine Bilirubin (Negative) Urine Urobilinogen (<2.0) mg/dL Ur Leukocyte Esterase (Negative) Urine WBC (Auto) (0.0-6.0) /HPF Urine RBC (Auto) (0.0-6.0) /HPF 10/15/20 10/15/20 Range/Units 13:53 14:08 WBC (4.5-11.0) K/mm3 RBC (3.65-5.03) M/mm3 Hgb (11.8-15.2) gm/dl Hct (35.5-45.6) % MCV (84-94) fl MCH (28-32) pg MCHC (32-34) % RDW (13.2-15.2) % Plt Count (140-440) K/mm3 Lymph % (Auto) (13.4-35.0) % Bowie % (Auto) (0.0-7.3) % Eos % (Auto) (0.0-4.3) % Baso % (Auto) (0.0-1.8) % Lymph # (Auto) (1.2-5.4) K/mm3 Bowie # (Auto) (0.0-0.8) K/mm3 Eos # (Auto) (0.0-0.4) K/mm3 Baso # (Auto) (0.0-0.1) K/mm3 Seg Neutrophils % (40.0-70.0) % Seg Neutrophils # (1.8-7.7) K/mm3 VBG pH 7.342 (7.320-7.420) Sodium (137-145) mmol/L Potassium (3.6-5.0) mmol/L Chloride (98-107) mmol/L Carbon Dioxide (22-30) mmol/L Anion Gap mmol/L BUN (9-20) mg/dL Creatinine (0.8-1.3) mg/dL Estimated GFR ml/min BUN/Creatinine Ratio % Glucose (75-100) mg/dL POC Glucose (70-105) mg/dL Calcium (8.4-10.2) mg/dL Total Bilirubin (0.1-1.2) mg/dL AST (5-40) units/L ALT (7-56) units/L Alkaline Phosphatase (35-129) units/L Total Protein (6.3-8.2) g/dL Albumin (3.9-5) g/dL Albumin/Globulin Ratio % Lipase (13-60) units/L Urine Color Yellow (Yellow) Urine Turbidity Clear (Clear) Urine pH 5.0 (5.0-7.0) Ur Specific [place] 1.014 (1.003-1.030) Urine Protein 30 mg/dl (Negative) mg/dL Urine Glucose (UA) >=500 (Negative) mg/dL Urine Ketones 20 (Negative) mg/dL Urine Blood Sm (Negative) Urine Nitrite Neg (Negative) Urine Bilirubin Neg (Negative) Urine Urobilinogen < 2.0 (<2.0) mg/dL Ur Leukocyte Esterase Neg (Negative) Urine WBC (Auto) < 1.0 (0.0-6.0) /HPF Urine RBC (Auto) 3.0 (0.0-6.0) /HPF - Medical Decision Making Patient is blood glucose was elevated however he is not acidotic at this time. He just has a small amount of ketones in his urine. Patient was aggressively hydrated with normal saline. Was given antiemetics and something for his gastritis. Patient is will be stable for discharge. Critical care attestation.: If time is entered above; I have spent that time in minutes in the direct care of this critically ill patient, excluding procedure time. ED Disposition Clinical Impression: Hyperglycemia, Acute gastritis Disposition: TO HOME OR SELFCARE Is pt being admited?: No Does the pt Need Aspirin: No Condition: Stable Instructions: Hyperglycemia, [id number], Gastritis, Adult Referrals: PRIMARY CARE, [Primary Care Provider] - 3-5 Days Time of Disposition: 18:30
== END 2020-10-15 20:15 | disposition home or self-care (01) ==
LOC: ED 12:09
DX: K29.00 Acute gastritis without bleeding (principal); E11.65 Type 2 diabetes mellitus with hyperglycemia; F17.200 Nicotine dependence, unspecified, uncomplicated; Z79.4 Long term (current) use of insulin; Z79.899 Other long term (current) drug therapy
CPT/HCPCS: 36415; 71046; 80053; 81001; 82805; 82962; 83690; 85025; 96361; 96374; 96375; 99284; J1885; J2405; J7030